=== PATIENT | female | born 1960 | race Caucasian/White ===

== ENCOUNTER 2017-07-24 15:01 | Observation (INO) ==
[2017-07-24] MEDS ORDERED: Ipratropium/Albuterol Neb 3 ML IH ONE (16:20)
--- NOTE | 2017-07-24 16:33 | Emergency Department Note ---
Disposition Clinical Impression: Exertional shortness of breath Disposition: Admitted As Inpatient Condition: Fair Referrals: Les Martines DO [Primary Care Provider] - Forms: ED Satisfaction Letter Time of Disposition: 20:12 SOB HPI - General Chief Complaint: ED Shortness of Breath/Dyspnea Stated Complaint: OMER, "sick" Time Seen by Provider: 07/24/17 15:26 Source: patient Limitations: no limitations Nursing Notes Reviewed: Yes Vital Signs Reviewed: Yes - History of Present Illness Patient is a 56-year-old female past medical history of COPD, asthma, recurrent pneumonia, epilepsy that presents for shortness of breath and cough for the past 3 days. Patient admits to a subjective fever. She has a productive cough with yellow sputum. Patient says that she is not on oxygen at home and has not been for the past 10 years. She admits to post tussive chest pain. She has shortness of breath at rest. She denies any abdominal pain. She does admit to some nausea and vomiting but denies any hematemesis. She denies any recent hospitalization. She denies any diarrhea or constipation. Denies any hematochezia or melena. Denies any dysuria or hematuria. - Related Data Home Medications Medication Instructions Recorded Confirmed Albuterol Sulfate [Proair Hfa] 2 puff IH Q4H PRN 11/17/15 11/17/15 Alendronate Sodium [Fosamax] 70 mg PO QWEEK 11/17/15 11/17/15 Benzonatate [Tessalon] 200 mg PO TID 11/17/15 11/17/15 Budesonide/Formoterol 80/4.5 2 puff IH BIDR 11/17/15 11/17/15 [Symbicort 80/4.5] Lactose-Reduced Food [Ensure 1 bottle PO TID 11/17/15 11/17/15 Complete] Mv,Ca,Fe,Min/FA/Guarana/Caff [One 1 tab PO DAILY 11/17/15 11/17/15 Daily Tablet] Oxcarbazepine [Oxtellar Xr] 300 mg PO QAM 11/17/15 11/17/15 Oxcarbazepine [Oxtellar Xr] 600 mg PO HS 11/17/15 11/17/15 Oxycodone HCl/Acetaminophen 1 tab PO Q6H PRN 11/17/15 11/17/15 [Percocet 5-325 mg Tablet] Ranitidine HCl [Heartburn Relief] 150 mg PO BID 11/17/15 11/17/15 Tiotropium [Spiriva] 1 puff IH DAILY 11/17/15 11/17/15 diazePAM [Valium] 10 mg PO TID 11/17/15 11/17/15 Allergies Allergy/AdvReac Type Severity Reaction Status Date / Time phenytoin Allergy Seizure Verified 11/17/15 10:41 Constitutional: Reports: fever, chills, weakness. Denies: weight change Cardiovascular: Reports: chest pain (Post-tussive), palpitations, dyspnea on exertion Respiratory: Reports: cough, dyspnea, wheezes, sputum production. Denies: hemoptysis Gastrointestinal: Denies: abdominal pain, nausea, vomiting, diarrhea, constipation, hematemesis, melena, hematochezia Genitourinary: Denies: dysuria, frequency, hematuria, discharge Musculoskeletal: Reports: myalgia Past Medical History - Past Medical History Medical history: Reports: COPD, seizures, other Surgical history: Reports: hysterectomy, other Psychiatric history: Reports: no psych history - Social History Smoking Status: Current some day smoker Alcohol use: Reports: none Drug use: Reports: none Physical Exam - General Limitations: no limitations General appearance: alert, in no apparent distress - Chest Chest inspection: Present: normal inspection, symmetric chest wall rise - Respiratory Respiratory exam: Present: wheezes (B/L. Most prominent in L posterior post. ) - Cardiovascular Cardiovascular exam: Present: normal rhythm, tachycardia, normal heart sounds, + S1, +S2. Absent: +S3, +S4 - Abdominal Exam Abdominal exam: Present: soft, tenderness (mild with deep palpation), normal bowel sounds. Absent: distention, guarding, rebound, rigidity Abdominal tenderness: Present: suprapubic - Extremities Exam Extremities exam: Present: normal inspection, full ROM, normal capillary refill , other (Negative gemma's sign b/l. ). Absent: tenderness, pedal edema, calf tenderness Course Course Narrative: Given patient was wheezing on exam and her history of COPD there was concern for COPD exacerbation. Patient was given duo nebs and oral prednisone. She subsequently started to feel slightly better but was still complaining of someshortness of breath. CTA showed no evidence of PE. Chest x-ray revealed focal infiltrate versus scarring in the right CP angle. Her white blood cell count was elevated at 22.1 and her lactic acid was elevated at 3. This was concerning for a pulmonary infectious etiology most likely bronchitis vs. PNA. We walked the patient will monitoring O2 sat and her O2 fell to 90% and she was exhibiting exertional dyspnea. Patent was started on levaquin. Spoke to hospitalist Dr. Phan who agreed to admit the patient for further evaluation. Chest X-Ray 07/24/17 16:20 IMPRESSION: COPD with questionable scarring versus focal infiltrate right CP angle. The mass noted on CT in the left mid lung is not appreciated on the conventional radiograph. D/ / 07/24/2017 17:10:17 Cooper Ochoa MD / ollie Interpreting Provider: Cooper Ochoa MD Chest CTA 07/24/17 17:43 IMPRESSION: No evidence of pulmonary embolism or acute pulmonary abnormality. Stable 11 mm pulmonary nodule within the left upper lobe. COPD. D/ / 07/24/2017 19:27:26 Ismael Marshall MD / ollie Interpreting Provider: Ismael Marshall MD Abnormal lab results WBC 22.1 K/mcL (4.3-11.1) H 07/24/17 16:41 MPV 8.5 fL (9.4-12.4) L 07/24/17 16:41 Neutrophils # 19.1 K/mcL (1.6-8.9) H 07/24/17 16:41 Monocytes # 1.7 K/mcL (0.0-1.3) H 07/24/17 16:41 Sodium 130 mEq/L (136-145) L 07/24/17 16:41 Carbon Dioxide 21 mEq/L (23-29) L 07/24/17 16:41 Creatinine 0.43 mg/dL (0.60-1.20) L 07/24/17 16:41 Glucose 143 mg/dL (70-105) H 07/24/17 16:41 Calculated Osmolality 270 (280-300) L 07/24/17 16:41 Lactic Acid 3.0 mmol/L (0.5-2.2) H 07/24/17 18:32 Vital Signs Temperature 98.8 F 07/24/17 15:11 Pulse Rate 121 07/24/17 15:11 Respiratory Rate 20 07/24/17 15:11 Blood Pressure 114/76 07/24/17 15:11 O2 Sat by Pulse Oximetry 90 07/24/17 15:11 Temperature 98.8 F 07/24/17 15:11 Pulse Rate 96 07/24/17 19:54 Respiratory Rate 22 07/24/17 19:54 Blood Pressure 115/71 07/24/17 19:54 O2 Sat by Pulse Oximetry 95 07/24/17 19:54 Oxygen Delivery Oxygen Delivery Room Air Shortness of Breath/Dyspnea - Lab Data Result diagrams: 07/24/17 16:41 07/24/17 16:41 Lab Results 07/24/17 07/24/17 07/24/17 Range/Units 16:41 16:41 16:41 WBC 22.1 H (4.3-11.1) K/mcL RBC 4.21 (3.82-4.97) M/mcL Hgb 13.3 (11.5-15.4) g/dL Hct 37.9 (35.3-44.9) % MCV 90.0 (83.0-100.0) fL MCH 31.6 (28.0-33.3) pg MCHC 35.1 (31.6-35.5) g/dL RDW 12.2 (11.5-14.5) % Plt Count 348 (140-400) K/mcL MPV 8.5 L (9.4-12.4) fL Immature Gran % 0.5 (0-4) % Seg Neutrophils % 86.3 % Lymphocytes % 5.5 % Monocytes % 7.5 % Eosinophils % 0.0 % Basophils % 0.2 % Neutrophils # 19.1 H (1.6-8.9) K/mcL Lymphocytes # 1.2 (0.6-4.6) K/mcL Monocytes # 1.7 H (0.0-1.3) K/mcL Eosinophils # 0.0 (0.0-0.6) K/mcL Basophils # 0.1 (0.0-0.2) K/mcL Sodium 130 L (136-145) mEq/L Potassium 3.7 (3.5-5.1) mEq/L Chloride 99 (98-107) mEq/L Carbon Dioxide 21 L (23-29) mEq/L BUN 7 (6-20) mg/dL Creatinine 0.43 L (0.60-1.20) mg/dL Est GFR ( Amer) > 60 (> 60) Est GFR (Non-Af Amer) > 60 (> 60) BUN/Creatinine Ratio 16 (6-26) Glucose 143 H (70-105) mg/dL Calculated Osmolality 270 L (280-300) Lactic Acid 1.7 (0.5-2.2) mmol/L Calcium 8.7 (8.6-10.3) mg/dL Troponin I < 0.03 (< 0.04) ng/mL B-Natriuretic Peptide (Less than 100) pg/mL Urine Color (Yellow) Urine Clarity (Clear) Urine pH (5.0-8.0) pH Units Ur Specific [place] (1.010-1.025) Urine Protein (Neg-Trace) mg/dL Urine Glucose (UA) (Normal) mg/dL Urine Ketones (Negative) mg/dL Urine Blood (Negative) Urine Nitrite (Negative) Urine Bilirubin (Negative) Urine Urobilinogen (Normal) mg/dL Ur Leukocyte Esterase (Negative) Ur Culture Indicated? (NO) 07/24/17 07/24/17 07/24/17 Range/Units 16:41 18:32 19:22 WBC (4.3-11.1) K/mcL RBC (3.82-4.97) M/mcL Hgb (11.5-15.4) g/dL Hct (35.3-44.9) % MCV (83.0-100.0) fL MCH (28.0-33.3) pg MCHC (31.6-35.5) g/dL RDW (11.5-14.5) % Plt Count (140-400) K/mcL MPV (9.4-12.4) fL Immature Gran % (0-4) % Seg Neutrophils % % Lymphocytes % % Monocytes % % Eosinophils % % Basophils % % Neutrophils # (1.6-8.9) K/mcL Lymphocytes # (0.6-4.6) K/mcL Monocytes # (0.0-1.3) K/mcL Eosinophils # (0.0-0.6) K/mcL Basophils # (0.0-0.2) K/mcL Sodium (136-145) mEq/L Potassium (3.5-5.1) mEq/L Chloride (98-107) mEq/L Carbon Dioxide (23-29) mEq/L BUN (6-20) mg/dL Creatinine (0.60-1.20) mg/dL Est GFR ( Amer) (> 60) Est GFR (Non-Af Amer) (> 60) BUN/Creatinine Ratio (6-26) Glucose (70-105) mg/dL Calculated Osmolality (280-300) Lactic Acid 3.0 H (0.5-2.2) mmol/L Calcium (8.6-10.3) mg/dL Troponin I (< 0.04) ng/mL B-Natriuretic Peptide 60 (Less than 100) pg/mL Urine Color Yellow (Yellow) Urine Clarity Clear (Clear) Urine pH 7.0 (5.0-8.0) pH Units Ur Specific [place] 1.021 (1.010-1.025) Urine Protein Negative (Neg-Trace) mg/dL Urine Glucose (UA) Normal (Normal) mg/dL Urine Ketones Negative (Negative) mg/dL Urine Blood Negative (Negative) Urine Nitrite Negative (Negative) Urine Bilirubin Negative (Negative) Urine Urobilinogen Normal (Normal) mg/dL Ur Leukocyte Esterase Negative (Negative) Ur Culture Indicated? NO (NO) - EKG Data EKG attestation: Yes I reviewed and interpreted this EKG. EKG shows normal: Reports: sinus rhythm, axis, intervals, QRS complexes Rate: Reports: tachycardia When compared to previous EKG there are: no significant changes Interpretation: Reports: no acute changes Attestation Statement - Attestation Attestation: I, Oswaldo Pratt DO, examined this patient [id number] and my medical decision-making was reviewed with Filemon Hassan PGY-1, Resident Physician. I agree with the documented findings, disposition and treatment plan as described except to the extent set forth below. Please see my progress notes for details.
[2017-07-24] MEDS ORDERED: predniSONE 20 MG TABLET PO ONE (16:43)
[2017-07-24 16:52] LABS: Basophils # 0.1 K/mcL (0.0-0.2); Basophils % 0.2 %; Hematocrit 37.9 % (35.3-44.9); Hemoglobin 13.3 g/dL (11.5-15.4); Immature Granulocytes % 0.5 % (0-4); Lymphocytes # 1.2 K/mcL (0.6-4.6); Lymphocytes % 5.5 %; Mean Corpuscular HGB Conc 35.1 g/dL (31.6-35.5); Mean Corpuscular Hemoglobin 31.6 pg (28.0-33.3); Mean Platelet Volume 8.5 fL (9.4-12.4); Monocytes # 1.7 K/mcL (0.0-1.3); Monocytes % 7.5 %; Neutrophils # 19.1 K/mcL (1.6-8.9); Platelet Count 348 K/mcL (140-400); Red Blood Count 4.21 M/mcL (3.82-4.97); Red Cell Distribution Width 12.2 % (11.5-14.5); Segmented Neutrophils % 86.3 %
[2017-07-24 17:20] LABS: BUN/Creatinine Ratio 16 (6-26); Blood Urea Nitrogen 7 mg/dL (6-20); Calcium 8.7 mg/dL (8.6-10.3); Carbon Dioxide 21 mEq/L (23-29); Chloride 99 mEq/L (98-107); Glucose 143 mg/dL (70-105); Osmolality,Calculated 270 (280-300); Potassium 3.7 mEq/L (3.5-5.1); Sodium 130 mEq/L (136-145); Troponin I < 0.03 ng/mL (< 0.04); eGFR For African Americans > 60 (> 60); eGFR For Non-African Americans > 60 (> 60)
--- NOTE | 2017-07-24 17:25 | Emergency Department Note ---
Disposition Clinical Impression: Exertional shortness of breath, SOB (shortness of breath), Weakness Disposition: Admitted As Inpatient Condition: Fair Referrals: Les Martines DO [Primary Care Provider] - Forms: ED Satisfaction Letter Time of Disposition: 20:14 General Adult HPI - General Chief complaint: ED Shortness of Breath/Dyspnea Stated complaint: OMER, "sick" Time Seen by Provider: 07/24/17 15:26 Source: patient Limitations: no limitations - History of Present Illness Pain Scale: 8 - Related Data Home Medications Medication Instructions Recorded Confirmed Albuterol Sulfate [Proair Hfa] 2 puff IH Q4H PRN 11/17/15 11/17/15 Alendronate Sodium [Fosamax] 70 mg PO QWEEK 11/17/15 11/17/15 Benzonatate [Tessalon] 200 mg PO TID 11/17/15 11/17/15 Budesonide/Formoterol 80/4.5 2 puff IH BIDR 11/17/15 11/17/15 [Symbicort 80/4.5] Lactose-Reduced Food [Ensure 1 bottle PO TID 11/17/15 11/17/15 Complete] Mv,Ca,Fe,Min/FA/Guarana/Caff [One 1 tab PO DAILY 11/17/15 11/17/15 Daily Tablet] Oxcarbazepine [Oxtellar Xr] 300 mg PO QAM 11/17/15 11/17/15 Oxcarbazepine [Oxtellar Xr] 600 mg PO HS 11/17/15 11/17/15 Oxycodone HCl/Acetaminophen 1 tab PO Q6H PRN 11/17/15 11/17/15 [Percocet 5-325 mg Tablet] Ranitidine HCl [Heartburn Relief] 150 mg PO BID 11/17/15 11/17/15 Tiotropium [Spiriva] 1 puff IH DAILY 11/17/15 11/17/15 diazePAM [Valium] 10 mg PO TID 11/17/15 11/17/15 Allergies Allergy/AdvReac Type Severity Reaction Status Date / Time levofloxacin [From Levaquin] Allergy Hives Verified 07/24/17 20:11 phenytoin Allergy Seizure Verified 11/17/15 10:41 Constitutional: Reports: fever, chills, weakness. Denies: weight change Cardiovascular: Reports: chest pain (Post-tussive), palpitations, dyspnea on exertion Respiratory: Reports: cough, dyspnea, wheezes, sputum production. Denies: hemoptysis Gastrointestinal: Denies: abdominal pain, nausea, vomiting, diarrhea, constipation, hematemesis, melena, hematochezia Genitourinary: Denies: dysuria, frequency, hematuria, discharge Musculoskeletal: Reports: myalgia Past Medical History - Past Medical History Medical history: Reports: COPD, seizures, other Surgical history: Reports: hysterectomy, other Psychiatric history: Reports: no psych history - Social History Smoking Status: Current some day smoker Alcohol use: Reports: none Drug use: Reports: none Physical Exam - General Limitations: no limitations General appearance: alert, in no apparent distress Course Vital Signs Temperature 98.8 F 07/24/17 15:11 Pulse Rate 121 07/24/17 15:11 Respiratory Rate 20 07/24/17 15:11 Blood Pressure 114/76 07/24/17 15:11 O2 Sat by Pulse Oximetry 90 07/24/17 15:11 Temperature 98.8 F 07/24/17 15:11 Pulse Rate 96 07/24/17 19:54 Respiratory Rate 22 07/24/17 19:54 Blood Pressure 115/71 07/24/17 19:54 O2 Sat by Pulse Oximetry 95 07/24/17 19:54 Oxygen Delivery Oxygen Delivery Room Air Medical Decision Making - Lab Data Result diagrams: 07/24/17 16:41 07/24/17 16:41 Lab Results 07/24/17 07/24/17 07/24/17 Range/Units 16:41 16:41 16:41 WBC 22.1 H (4.3-11.1) K/mcL RBC 4.21 (3.82-4.97) M/mcL Hgb 13.3 (11.5-15.4) g/dL Hct 37.9 (35.3-44.9) % MCV 90.0 (83.0-100.0) fL MCH 31.6 (28.0-33.3) pg MCHC 35.1 (31.6-35.5) g/dL RDW 12.2 (11.5-14.5) % Plt Count 348 (140-400) K/mcL MPV 8.5 L (9.4-12.4) fL Immature Gran % 0.5 (0-4) % Seg Neutrophils % 86.3 % Lymphocytes % 5.5 % Monocytes % 7.5 % Eosinophils % 0.0 % Basophils % 0.2 % Neutrophils # 19.1 H (1.6-8.9) K/mcL Lymphocytes # 1.2 (0.6-4.6) K/mcL Monocytes # 1.7 H (0.0-1.3) K/mcL Eosinophils # 0.0 (0.0-0.6) K/mcL Basophils # 0.1 (0.0-0.2) K/mcL Sodium 130 L (136-145) mEq/L Potassium 3.7 (3.5-5.1) mEq/L Chloride 99 (98-107) mEq/L Carbon Dioxide 21 L (23-29) mEq/L BUN 7 (6-20) mg/dL Creatinine 0.43 L (0.60-1.20) mg/dL Est GFR ( Amer) > 60 (> 60) Est GFR (Non-Af Amer) > 60 (> 60) BUN/Creatinine Ratio 16 (6-26) Glucose 143 H (70-105) mg/dL Calculated Osmolality 270 L (280-300) Lactic Acid 1.7 (0.5-2.2) mmol/L Calcium 8.7 (8.6-10.3) mg/dL Troponin I < 0.03 (< 0.04) ng/mL B-Natriuretic Peptide (Less than 100) pg/mL Urine Color (Yellow) Urine Clarity (Clear) Urine pH (5.0-8.0) pH Units Ur Specific [place] (1.010-1.025) Urine Protein (Neg-Trace) mg/dL Urine Glucose (UA) (Normal) mg/dL Urine Ketones (Negative) mg/dL Urine Blood (Negative) Urine Nitrite (Negative) Urine Bilirubin (Negative) Urine Urobilinogen (Normal) mg/dL Ur Leukocyte Esterase (Negative) Ur Culture Indicated? (NO) 07/24/17 07/24/17 07/24/17 Range/Units 16:41 18:32 19:22 WBC (4.3-11.1) K/mcL RBC (3.82-4.97) M/mcL Hgb (11.5-15.4) g/dL Hct (35.3-44.9) % MCV (83.0-100.0) fL MCH (28.0-33.3) pg MCHC (31.6-35.5) g/dL RDW (11.5-14.5) % Plt Count (140-400) K/mcL MPV (9.4-12.4) fL Immature Gran % (0-4) % Seg Neutrophils % % Lymphocytes % % Monocytes % % Eosinophils % % Basophils % % Neutrophils # (1.6-8.9) K/mcL Lymphocytes # (0.6-4.6) K/mcL Monocytes # (0.0-1.3) K/mcL Eosinophils # (0.0-0.6) K/mcL Basophils # (0.0-0.2) K/mcL Sodium (136-145) mEq/L Potassium (3.5-5.1) mEq/L Chloride (98-107) mEq/L Carbon Dioxide (23-29) mEq/L BUN (6-20) mg/dL Creatinine (0.60-1.20) mg/dL Est GFR ( Amer) (> 60) Est GFR (Non-Af Amer) (> 60) BUN/Creatinine Ratio (6-26) Glucose (70-105) mg/dL Calculated Osmolality (280-300) Lactic Acid 3.0 H (0.5-2.2) mmol/L Calcium (8.6-10.3) mg/dL Troponin I (< 0.04) ng/mL B-Natriuretic Peptide 60 (Less than 100) pg/mL Urine Color Yellow (Yellow) Urine Clarity Clear (Clear) Urine pH 7.0 (5.0-8.0) pH Units Ur Specific [place] 1.021 (1.010-1.025) Urine Protein Negative (Neg-Trace) mg/dL Urine Glucose (UA) Normal (Normal) mg/dL Urine Ketones Negative (Negative) mg/dL Urine Blood Negative (Negative) Urine Nitrite Negative (Negative) Urine Bilirubin Negative (Negative) Urine Urobilinogen Normal (Normal) mg/dL Ur Leukocyte Esterase Negative (Negative) Ur Culture Indicated? NO (NO) Attestation Statement - Attestation Attestation: I, Oswaldo Pratt DO, examined this patient [id number] and my medical decision-making was reviewed with Filemon Hassan PGY-1, Resident Physician. I agree with the documented findings, disposition and treatment plan as described except to the extent set forth below. Please see my progress notes for details. 56-year-old female presents to the emergency room for evaluation of shortness of breath. Patient denies any trauma or injury. Denies any recent illnesses including fevers or chills chest pain headache vision changes nausea vomiting or diarrhea. She has no new medications or travel outside the country. Patient does have known COPD the typically does not require oxygen. She came in here today because of the last several days she is a persistently worsening shortness of breath. Vital signs on presentation were unremarkable except for tachycardia. Some of this is secondary to the increased work of breathing. Patient is using accessory muscles including the anterior scalenes and the diaphragm quite heavily here during my evaluation. Her oropharynx is patent her trachea is midline there is no stridor no trismus. Her heart is regular but tachycardic. She has clear lungs with diminished aeration her air movement on examination. This will most likely clear up or start to wheeze after breathing treatments are given. Abdomen is soft nontender nondistended non- peritoneal and evaluation. She has no guarding or rigidity. She does have diaphragmatic tenderness when palpating across the inferior aspect of the rib margin bilaterally and into her back. Patient moves all 4 of her extremities without any difficulty. She has no signs of pitting edema or swelling. Patient is alert she is oriented she speaks in full sentences and does not appear to have any neurologic deficits or issues. Patient will have breathing treatments steroids chest x-ray EKG labs including CBC chemistry troponin and BNP. Once this workup and treatment course are completed disposition will be determined. Patient is concerning for COPD exacerbation and is failed outpatient management. See detailed documentation of the physical exam, medical intervention, medical decision-making and disposition in the resident physician's note. No critical care applied to the patient's treatment course at this time. 1945 CT angiography of the patient's chest and lungs show any acute signs of pulmonary emboli or specific infection this point. Levaquin was given here. Second lactic acid was collected and was 3.0. Patient has not been febrile has not been tachycardic and has not had any signs of hypotension while here. She does have a significantly elevated white blood cell count. A single liter of fluid will be given at this time. Patient does not meet any signs of severe sepsis. She does have some underlying infectious etiology most likely bronchitis based on the presentation the cough and shortness of breath. Patient will be admitted at this time because while she was walking she dropped on the 90% and had shortness of breath and felt lightheaded. Patient typically does not require oxygen at home. Otherwise the patient is clinically stable. Admission process to be completed at this point. No critical care applied to the patient's treatment course. Patient does have what looks like irritation secondary to the Levaquin and left upper extremity IV. Antibiotic was stopped after 500 mg of the medication was given. No specific infectious etiology noted at this time based on CT imaging of the patient will be admitted for symptomatic hypoxia 2000 Patient was discussed with the hospitalist Dr. Phan. No other recommendations noted at this time. Patient will be admitted for what looks like possible bronchitis in light of a negative CT scan causing elevated white blood cell count and intermittent tachycardia. Patient also had hypoxia. No acute signs of septic shock or requirement for fluid resuscitation at this time. Lactic acid was 3.0 on the repeat. Patient will require fluid in the hospital setting and close management. Single dose bolus of fluid was given here. Patient will be admitted at this time.
[2017-07-24] MEDS ORDERED: Levofloxacin 750 MG/150 ML 750 MG/150 ML BAG IVPB ONE (17:27)
[2017-07-24] MEDS ORDERED: Isovue-370 500 ML INFUS..BTL IV ONE (17:43)
[2017-07-24] MEDS ORDERED: *HR* OxyCODONE/APAP 5/325 TABLET PO ONE (18:18)
[2017-07-24 19:31] LABS: Bilirubin,Urine Negative (Negative); Blood,Urine Negative (Negative); Clarity,Urine Clear (Clear); Color,Urine Yellow (Yellow); Glucose,Urine (UA) Normal (Normal); Ketones,Urine Negative (Negative); Leukocyte Esterase,Urine Negative (Negative); Nitrite,Urine Negative (Negative); Protein,Urine Negative (Neg-Trace); Specific Gravity,Urine 1.021 (1.010-1.025); Urobilinogen,Urine Normal (Normal)
[2017-07-24] MEDS ORDERED: 0.9 % Sodium Chloride 1,000 ML IVC ONE (19:57)
[2017-07-24] MEDS ORDERED: Naloxone 0.4 MG/ML INJ IVP PRN (22:52)
--- NOTE | 2017-07-24 23:02 | Internal Med History&Physical ---
Date of Encounter: 07/24/17 Time of Encounter: 23:02 Internal Medicine - H&P: HPI Chief complaint: Shortness of breath Admitted From: Emergency Dept Plans for Post Hospital Care: Home History of present illness: Ms. Allison is a 56 year old female with h/o- COPD, who presents with c/o- shortness of breath and felling sick for the last 3 days. SHe reports exertional dyspnea, productive cough with clear sputum, rib pains on both sides on coughing, dizziness and wheezing. No fever/chills. SHe has not been treated with antibiotics or steroids at home. SHe has generalized weakness and leg pains. No leg swelling, orthopnea, syncope. SHe has been using her inhalers and nebulizers at home with no improvement in symptoms. She is not on home O2. Past Med Surg Social Fam HX - Past Medical History Source: patient Medical history: COPD, seizures, other Psychiatric history: no psych history - Past Surgical History Surgical History: hysterectomy (tubal ligation), orthopedic, other (left knee surgery), other - Social History Smoking Status: Current some day smoker Packs per day: 0.1 Smokeless Tobacco Status: No Alcohol use: none Drug use: none Occupational status: disabled Current living situation: Home, With Family Activity Level: Uses cane/walker Recent Out of Country Travel Within the Last 8 Weeks: No Exposure or Possible Exposure to Illness During Travel: No - Family History Father Living Status: Hx Family Neurologic Disorders: Yes (Parkinson's) Hx Family Psychosocial Disorders: Yes (Alzheimer's) Mother Living Status: Still Living Hx Family Cancer: Yes (breast cancer) Hx Family Medical Disorders: Yes (CVA) Internal Medicine - H&P: Meds Albuterol Sulfate [Proair Hfa] 2 puff IH Q4H PRN 11/17/15 [History] Alendronate Sodium [Fosamax] 70 mg PO QWEEK 11/17/15 [History] Lactose-Reduced Food [Ensure Complete] 1 bottle PO TID 11/17/15 [History] Oxcarbazepine [Oxtellar Xr] 300 mg PO QAM 11/17/15 [History] Oxcarbazepine [Oxtellar Xr] 600 mg PO HS 11/17/15 [History] Oxycodone HCl/Acetaminophen [Percocet 5-325 mg Tablet] 1 tab PO Q6H PRN [History] Ranitidine HCl [Heartburn Relief] 150 mg PO BID 11/17/15 [History] diazePAM [Valium] 10 mg PO TID 11/17/15 [History] Fluticasone/Vilanterol [Breo Ellipta 100-25 Mcg INH] 07/24/17 [History] Phenytoin ER [Dilantin ER] 300 mg PO BID 07/24/17 [History] Phenytoin ER [Dilantin ER] 600 mg PO HS 07/24/17 [History] 3 Allergy/AdvReac Type Severity Reaction Status Date / Time levofloxacin [From Levaquin] Allergy Hives Verified 07/24/17 20:11 All Systems PM: A 10-system review of systems was performed and is negative for pertinent findings except as documented above in the HPI. - Constitutional Constitutional: fatigue, malaise, weakness - EENT Eyes: no change in vision, no discharge, no pain, no photophobia Ears: no ear discharge, no ear pain, no tinnitus Nose, mouth and throat: no dysphagia, no nasal discharge, no neck pain, no sore throat - Cardiovascular Cardiovascular ROS IM: chest pain, dyspnea, dyspnea on exertion, lightheadedness , no diaphoresis, no palpitations, no syncope - Respiratory Respiratory: cough, dyspnea, dyspnea on exertion, wheezing, chest congestion, excessive phlegm production - Gastrointestinal Gastrointestinal: no abdominal pain, no diarrhea, no hematemesis, no hematochezia, no melena, no nausea, no vomiting - Genitourinary Genitourinary: no change in urinary stream, no dysuria, no flank pain, no hematuria - Musculoskeletal Musculoskeletal ROS IM: muscle weakness, myalgias, no numbness, no tingling - Integumentary Integumentary IM: no rash, no unusual bruising - Neurological Neurological ROS: no confusion, no convulsions, no focal weakness, no numbness, no tingling, no tremor(s) - Hematologic/Lymphatic Hematologic/Lymphatic: no easy bruising - Constitutional Vitals: Temp Pulse Resp BP Pulse Ox 97.9 F 93 16 110/65 96 07/24/17 21:20 07/24/17 21:20 07/24/17 21:20 07/24/17 21:20 07/24/17 22:23 General appearance: Present: cachectic, A&O X 3, answers questions appropriately - Respiratory Respiratory exam: Present: decreased breath sounds (decreased air entry at right base), CTAB. Absent: accessory muscle use, rales, rhonchi, wheezes - Cardiovascular Cardiovascular exam: Present: RRR, +S1, +S2. Absent: diastolic murmur, gallop, rubs, systolic murmur - GI/Abdominal GI/Abdominal exam: Present: normal bowel sounds, soft, no peritoneal signs. Absent: distended, tenderness - Extremities Exam Extremities exam: Present: full ROM, warm, radial pulses palpable and symmetrical. Absent: calf tenderness, cyanotic, pedal edema - Neurological Exam Neurological exam: Present: CN II-XII intact, oriented X3, no focal deficits. Absent: pronater drift, facial droop, speech deficit - Skin Skin exam: Present: dry, intact Internal Med - H&P Results - Labs CBC & Chem 7: 07/24/17 16:41 07/24/17 16:41 - EKG Data -: EKG Interpreted by Myself EKG shows normal: sinus rhythm Rate: tachycardia - Assessment and plan (1) Acute exacerbation of chronic obstructive pulmonary disease (COPD) Current Visit: Yes Status: Acute Assessment and plan: continue oral Prednisone, bronchodilator nebs, supplemental O2, supportive care ; empiric IV antibiotics- Doxycycline; CTA chest showed no e/o- PE or pneumonia , chronic MARLEN spiculated nodule; patient follows with Pulmonology, biopsy is deferred for now due to risks of GA exceeding benefits; patient has leukocytosis and mild lactic acidosis, likely due to acute COPD and hypoxia; sepsis less likely. monitor vitals and lactic acid; f/up blood cultures. PT evaluation due to leg weakness; (2) Epilepsy Current Visit: Yes Status: Chronic Assessment and plan: resume home meds; seizure precautions; Qualifiers: Epilepsy type: unspecified Intractability: not intractable Status epilepticus: without status epilepticus Qualified Code(s): G40.909 - Epilepsy , unspecified, not intractable, without status epilepticus - Time Spent With Patient Total time spent is greater than 50% in coordination of care (as documented) at patient's floor/unit and/or counseling patient:
[2017-07-24] MEDS: OXcarbazepine 150 MG TABLET PO SCH (23:22)
[2017-07-24] MEDS: Famotidine 20 MG TABLET PO SCH (23:22)
[2017-07-24] MEDS: diazePAM 10 MG TABLET PO SCH (23:23)
[2017-07-24] MEDS: *HR* Heparin 5,000 UNIT/ML VIAL SQ SCH (23:23)
[2017-07-24] MEDS: Ringers Solution, Lactated 1,000 ML IVC SCH (23:23)
[2017-07-25] MEDS: *HR* OxyCODONE/APAP 5/325 TABLET PO PRN ×4 (00:54→20:37)
[2017-07-25 05:26] LABS: Basophils % 0.2 %; Hematocrit 31.9 % (35.3-44.9); Immature Granulocytes % 0.5 % (0-4); Lymphocytes % 12.8 %; Mean Corpuscular HGB Conc 34.8 g/dL (31.6-35.5); Mean Corpuscular Hemoglobin 31.5 pg (28.0-33.3); Mean Corpuscular Volume 90.6 fL (83.0-100.0); Mean Platelet Volume 8.5 fL (9.4-12.4); Monocytes % 4.8 %; Platelet Count 311 K/mcL (140-400); Red Blood Count 3.52 M/mcL (3.82-4.97); Red Cell Distribution Width 12.3 % (11.5-14.5); Segmented Neutrophils % 81.7 %
[2017-07-25 05:27] LABS: Lymphocytes # 2.5 K/mcL (0.6-4.6); Monocytes # 0.9 K/mcL (0.0-1.3); Neutrophils # 15.9 K/mcL (1.6-8.9)
[2017-07-25 05:28] LABS: Hemoglobin 11.1 g/dL (11.5-15.4)
[2017-07-25 05:51] LABS: BUN/Creatinine Ratio 27 (6-26); Blood Urea Nitrogen 7 mg/dL (6-20); Calcium 8.1 mg/dL (8.6-10.3); Carbon Dioxide 20 mEq/L (23-29); Chloride 106 mEq/L (98-107); Glucose 90 mg/dL (70-105); Osmolality,Calculated 274 (280-300); Potassium 3.9 mEq/L (3.5-5.1); Sodium 133 mEq/L (136-145); eGFR For African Americans > 60 (> 60); eGFR For Non-African Americans > 60 (> 60)
[2017-07-25] MEDS: *HR* Heparin 5,000 UNIT/ML VIAL SQ SCH ×3 (05:55→22:53)
[2017-07-25] MEDS: Doxycycline 100 MG in 0.9 % Sodium Chloride Mini Bag 100 ML IVPB SCH ×2 (05:55→17:12)
[2017-07-25] MEDS: Famotidine 20 MG TABLET PO SCH ×2 (08:00→20:28)
[2017-07-25] MEDS: diazePAM 10 MG TABLET PO SCH ×3 (08:00→20:28)
[2017-07-25] MEDS: OXcarbazepine 150 MG TABLET PO SCH ×2 (08:00→20:28)
[2017-07-25] MEDS ORDERED: predniSONE 20 MG TABLET PO SCH (09:00)
[2017-07-25] MEDS ORDERED: NON-FORMULARY MEDICATION 1 EACH EACH (Lactose-Reduced Food [Ensure Complete] 1 BOTTLE) PO SCH (09:00)
[2017-07-25] MEDS: (Fluticasone/Vilanterol [Breo Ellipta 100-25 Mcg Inh]) IH SCH (09:52)
--- NOTE | 2017-07-25 14:07 | Internal Med Progress Note ---
Date of Encounter: 07/25/17 Time of Encounter: 14:05 - Assessment and plan (1) Exertional shortness of breath Current Visit: Yes Status: Acute Assessment and plan: still very sob (2) Acute exacerbation of chronic obstructive pulmonary disease (COPD) Current Visit: Yes Status: Acute Assessment and plan: clinically not better will dc prednisone and start on solumedrol and add scheduled duoneb and consult pulm (3) Epilepsy Current Visit: Yes Status: Chronic Assessment and plan: no seizure episode Qualifiers: Epilepsy type: unspecified Intractability: not intractable Status epilepticus: without status epilepticus Qualified Code(s): G40.909 - Epilepsy , unspecified, not intractable, without status epilepticus - Time Spent With Patient Total time spent is greater than 50% in coordination of care (as documented) at patient's floor/unit and/or counseling patient: - Subjective Interval history: Patient with copd and seizure disorder admiited with productive cough and wheezing today patient is not getting better stll wheezing insp and exp will dc prednisone and start solumedrol and consult pulm - Constitutional Vitals: Temp Pulse Resp BP Pulse Ox 98.7 F 82 16 111/70 93 07/25/17 11:59 07/25/17 11:59 07/25/17 11:59 07/25/17 11:59 07/25/17 11:59 General appearance: Present: cachectic, A&O X 3, answers questions appropriately - Head Head exam: Present: atraumatic, normocephalic - Eye Eye exam: Present: PERRL, conjuntiva pink, sclera anicteric Pupils: Present: PERRL - Respiratory Respiratory exam: Present: prolonged expiratory phase, wheezes - Cardiovascular Cardiovascular exam: Present: RRR, +S1, +S2. Absent: diastolic murmur, gallop, rubs, systolic murmur - GI/Abdominal GI/Abdominal exam: Present: normal bowel sounds, soft, no peritoneal signs. Absent: distended, tenderness - Extremities Exam Extremities exam: Present: warm, radial pulses palpable and symmetrical. Absent : calf tenderness, cyanotic, pedal edema - Neurological Exam Neurological exam: Present: CN II-XII intact, oriented X3, no focal deficits. Absent: pronater drift, facial droop, speech deficit Internal Medicine: Result - Labs CBC & Chem 7: 07/25/17 05:10 07/25/17 05:10 Labs: Short CBC 07/25/17 Range/Units 05:10 WBC 19.4 H (4.3-11.1) K/mcL Hgb 11.1 L D (11.5-15.4) g/dL Hct 31.9 L (35.3-44.9) % Plt Count 311 (140-400) K/mcL Neutrophils # 15.9 H (1.6-8.9) K/mcL BMP 07/25/17 05:10 Sodium 133 L Potassium 3.9 Chloride 106 Carbon Dioxide 20 L BUN 7 Creatinine 0.26 L Glucose 90 Calcium 8.1 L Cardiac Enzymes 07/24/17 07/25/17 07/25/17 Range/Units 23:15 05:10 11:12 Troponin I < 0.03 < 0.03 0.05 H* (< 0.04) ng/mL Consult Discharge Plan - Plan Referrals: Les Martines DO [Primary Care Provider] -
[2017-07-25] MEDS: Ipratropium/Albuterol Neb 3 ML IH PRN ×2 (15:05→21:53)
--- NOTE | 2017-07-25 16:36 | Pulmonology Consult Note ---
Date of Encounter: 07/25/17 Time of Encounter: 16:00 Assessment and Plan (1) Acute exacerbation of chronic obstructive pulmonary disease (COPD) Current Visit: Yes Status: Acute Patient presented with a picture compatible with COPD exacerbation and advised him multiple times to quit smoking completely in order for her to feels better and she stated she will not smoke again. At this time empiric antibiotic is reasonable and I will stop prednisone to change it to IV Solu-Medrol with higher dose since patient still having symptoms and also on examination she has bilateral wheezing and add Symbicort to her current treatment. As outpatient and she will need pulmonary rehabilitation. Patient will need to be qualified for oxygen and to keep SPO2 around 90%. Thank you for consultation we will continue follow-up. (2) Tobacco abuse Current Visit: Yes Status: Chronic (3) Tobacco abuse counseling Current Visit: Yes Status: Chronic Patient stated that she will not smoke tobacco again. (4) Lung nodule Current Visit: Yes Status: Chronic This has been stable and follow-up as outpatient. History of Present Illness Consult date: 07/25/17 Requesting physician: Erwin Morrison Reason for consult: COPD Chief complaint: Shortness of breath History of present illness: This is pleasant 56-year-old female who is known to me from outpatient clinic with history of COPD and she quit smoking only a few days ago even though she was told multiple times her disease will progress if she does not quit smoking tobacco. She presented with worsening of shortness of breath and productive cough with clear sputum and chest soreness from coughing and she also have dizziness and wheezing. She denies any fever or chills. Patient is not on home oxygen and she feels her disease was progressing. She denies any orthopnea and no hemoptysis. She had a lung nodule that has been monitored as outpatient. Past Med Surg Social Fam HX - Past Medical History Medical history: COPD, seizures, other Psychiatric history: no psych history - Past Surgical History Surgical History: hysterectomy (tubal ligation), orthopedic, other (left knee surgery), other - Social History Smoking Status: Current some day smoker Packs per day: 0.1 Smokeless Tobacco Status: No Alcohol use: none Drug use: none - Family History Father Living Status: Hx Family Neurologic Disorders: Yes (Parkinson's) Hx Family Psychosocial Disorders: Yes (Alzheimer's) Mother Living Status: Still Living Hx Family Cancer: Yes (breast cancer) Hx Family Medical Disorders: Yes (CVA) Medications and Allergies Albuterol Sulfate [Proair Hfa] 2 puff IH Q4H PRN 11/17/15 [History] Alendronate Sodium [Fosamax] 70 mg PO QWEEK 11/17/15 [History] Lactose-Reduced Food [Ensure Complete] 1 bottle PO TID 11/17/15 [History] Oxcarbazepine [Oxtellar Xr] 300 mg PO QAM 11/17/15 [History] Oxcarbazepine [Oxtellar Xr] 600 mg PO HS 11/17/15 [History] Oxycodone HCl/Acetaminophen [Percocet 5-325 mg Tablet] 1 tab PO Q6H PRN [History] Ranitidine HCl [Heartburn Relief] 150 mg PO BID 11/17/15 [History] diazePAM [Valium] 10 mg PO TID 11/17/15 [History] Fluticasone/Vilanterol [Breo Ellipta 100-25 Mcg INH] 1 puff IH DAILY 07/24/17 [ History] Phenytoin ER [Dilantin ER] 300 mg PO BID 07/24/17 [History] Phenytoin ER [Dilantin ER] 600 mg PO HS 07/24/17 [History] 3 Allergy/AdvReac Type Severity Reaction Status Date / Time levofloxacin [From Levaquin] Allergy Hives Verified 07/24/17 20:11 All Systems: The remainder of the systems were reviewed and are negative Physical Examination Vital Signs: Vital Signs, Last 4 Hours Temp Pulse Resp BP Pulse Ox 07/25/17 15:58 98.4 F 79 16 126/80 97 07/25/17 15:07 16 93 General appearance: appears uncomfortable (Mild respiratory distress) Eyes: nonicteric ENT: oropharynx moist Mallampati (class): 1 Neck: supple, no lymphadenopathy, no JVD Effort: mildly labored Inspection: hyperextended Auscultation: bilateral: wheezes Percussion: bilateral: not dull Cardiovascular: regular rate and rhythm Gastrointestinal: normoactive bowel sounds, non-distended Extremities: no cyanosis, no edema normal mental status, non-focal exam anxious Results - Laboratory Findings CBC and BMP: 07/25/17 05:10 07/25/17 05:10 Abnormal lab findings: Abnormal lab results WBC 19.4 K/mcL (4.3-11.1) H 07/25/17 05:10 RBC 3.52 M/mcL (3.82-4.97) L 07/25/17 05:10 Hgb 11.1 g/dL (11.5-15.4) L D 07/25/17 05:10 Hct 31.9 % (35.3-44.9) L 07/25/17 05:10 MPV 8.5 fL (9.4-12.4) L 07/25/17 05:10 Neutrophils # 15.9 K/mcL (1.6-8.9) H 07/25/17 05:10 Sodium 133 mEq/L (136-145) L 07/25/17 05:10 Carbon Dioxide 20 mEq/L (23-29) L 07/25/17 05:10 Creatinine 0.26 mg/dL (0.60-1.20) L 07/25/17 05:10 BUN/Creatinine Ratio 27 (6-26) H 07/25/17 05:10 Calculated Osmolality 274 (280-300) L 07/25/17 05:10 Calcium 8.1 mg/dL (8.6-10.3) L 07/25/17 05:10 Troponin I 0.05 ng/mL (< 0.04) H* 07/25/17 11:12 - Diagnostic Findings CT scan - chest: report reviewed, image reviewed - Clinical Findings Intake & Output: Intake & Output 07/25/17 07/25/17 07/25/17 07:59 15:59 23:59 Intake Total 1440 / 1440 Output Total 500 / 500 Balance -500 / -500 1440 / 1440 Weight 42.2 kg Consult Discharge Plan - Plan Referrals: Les Martines DO [Primary Care Provider] -
[2017-07-25] MEDS: Ringers Solution, Lactated 1,000 ML IVC SCH (17:15)
[2017-07-25] MEDS: Budesonide/Formoterol 160/4.5 MDI IH SCH (20:43)
[2017-07-25] MEDS: methylPREDNISolone 125 MG/2 ML VIAL IVP SCH (22:53)
[2017-07-26] MEDS: *HR* OxyCODONE/APAP 5/325 TABLET PO PRN ×4 (02:43→21:12)
[2017-07-26] MEDS: Acetaminophen 325 MG TABLET PO PRN ×2 (05:39→13:02)
[2017-07-26] MEDS: *HR* Heparin 5,000 UNIT/ML VIAL SQ SCH ×3 (05:40→21:13)
[2017-07-26] MEDS: Ipratropium/Albuterol Neb 3 ML IH PRN ×3 (05:53→22:34)
[2017-07-26] MEDS: Budesonide/Formoterol 160/4.5 MDI IH SCH ×2 (07:21→20:14)
[2017-07-26 08:10] LABS: Hematocrit 32.9 % (35.3-44.9); Hemoglobin 11.2 g/dL (11.5-15.4); Mean Corpuscular Hemoglobin 31.4 pg (28.0-33.3); Mean Corpuscular Volume 92.2 fL (83.0-100.0); Mean Platelet Volume 8.8 fL (9.4-12.4); Platelet Count 361 K/mcL (140-400); Red Blood Count 3.57 M/mcL (3.82-4.97); Red Cell Distribution Width 12.3 % (11.5-14.5)
[2017-07-26] MEDS: (Fluticasone/Vilanterol [Breo Ellipta 100-25 Mcg Inh]) IH SCH (08:31)
[2017-07-26] MEDS: methylPREDNISolone 125 MG/2 ML VIAL IVP SCH ×2 (08:39→14:52)
[2017-07-26] MEDS: Famotidine 20 MG TABLET PO SCH ×2 (08:41→21:10)
[2017-07-26] MEDS: diazePAM 10 MG TABLET PO SCH ×3 (08:41→21:12)
[2017-07-26] MEDS: OXcarbazepine 150 MG TABLET PO SCH ×2 (08:41→21:11)
[2017-07-26] MEDS: Doxycycline 100 MG in 0.9 % Sodium Chloride Mini Bag 100 ML IVPB SCH ×2 (10:25→23:55)
--- NOTE | 2017-07-26 12:27 | Internal Med Progress Note ---
Date of Encounter: 07/26/17 Time of Encounter: 12:25 - Assessment and plan (1) Exertional shortness of breath Current Visit: Yes Status: Acute Assessment and plan: clinically improved (2) Acute exacerbation of chronic obstructive pulmonary disease (COPD) Current Visit: Yes Status: Acute Assessment and plan: Clinically improved appreciate pulmonary input with adjustment to her Solu- Medrol and additional breathing treatment (3) Epilepsy Current Visit: Yes Status: Chronic Assessment and plan: No recent seizure episode Qualifiers: Epilepsy type: unspecified Intractability: not intractable Status epilepticus: without status epilepticus Qualified Code(s): G40.909 - Epilepsy , unspecified, not intractable, without status epilepticus - Time Spent With Patient Total time spent is greater than 50% in coordination of care (as documented) at patient's floor/unit and/or counseling patient: - Subjective Interval history: Patient with copd and seizure disorder admiited with productive cough and wheezing today patient is not getting better stll wheezing insp and exp will dc prednisone and start solumedrol and consult pulm Today patient seen and examined has multiple nonspecific complaints pain had made feeling weak shortness of breath however is better examined at wheezing has also improved - Constitutional Vitals: Temp Pulse Resp BP Pulse Ox 98.2 F 84 14 122/73 96 07/26/17 11:44 07/26/17 11:44 07/26/17 11:44 07/26/17 11:44 07/26/17 11:44 General appearance: Present: cachectic, A&O X 3, answers questions appropriately - Eye Eye exam: Present: PERRL, conjuntiva pink, sclera anicteric Pupils: Present: PERRL - Neck Neck exam general surgery: Present: supple, trachea midline. Absent: lymphadenopathy - Respiratory Respiratory exam: Present: prolonged expiratory phase, wheezes - Cardiovascular Cardiovascular exam: Present: RRR, +S1, +S2. Absent: diastolic murmur, gallop, rubs, systolic murmur - GI/Abdominal GI/Abdominal exam: Present: normal bowel sounds, soft, no peritoneal signs. Absent: distended, tenderness Internal Medicine: Result - Labs CBC & Chem 7: 07/26/17 07:14 07/25/17 05:10 Labs: Short CBC 07/26/17 Range/Units 07:14 WBC 14.6 H (4.3-11.1) K/mcL Hgb 11.2 L (11.5-15.4) g/dL Hct 32.9 L (35.3-44.9) % Plt Count 361 (140-400) K/mcL Consult Discharge Plan - Plan Referrals: Les Martines DO [Primary Care Provider] - 08/02/17 1:30 pm
[2017-07-26] MEDS ORDERED: Menthol 9.1 MG LOZENGE PO PRN (12:39)
[2017-07-26] MEDS: 0.9 % Sodium Chloride 1,000 ML IVC SCH (12:59)
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
--- NOTE | 2017-07-26 16:37 | Electrocardiograph Report ---
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
[2017-07-27] MEDS: methylPREDNISolone 125 MG/2 ML VIAL IVP SCH ×3 (00:13→15:11)
[2017-07-27] MEDS: 0.9 % Sodium Chloride 1,000 ML IVC SCH ×2 (02:10→15:59)
[2017-07-27] MEDS: *HR* OxyCODONE/APAP 5/325 TABLET PO PRN ×4 (03:10→21:34)
[2017-07-27] MEDS: *HR* Heparin 5,000 UNIT/ML VIAL SQ SCH ×3 (06:04→21:34)
[2017-07-27] MEDS: Ipratropium/Albuterol Neb 3 ML IH PRN ×3 (07:34→23:25)
[2017-07-27] MEDS: Budesonide/Formoterol 160/4.5 MDI IH SCH ×2 (07:34→19:38)
--- NOTE | 2017-07-27 09:01 | Neurology Progress Note ---
Date of Encounter: 07/27/17 Time of Encounter: 07:59 Assessment and Plan (1) Dilantin toxicity Current Visit: Yes Status: Acute Dilantin level was noted to be elevated though it is not significantly elevated but considering clinical symptoms she does exhibiting all features of Dilantin toxicity predominantly dizziness and ataxia along with mild dysmetria on finger- to-nose which is quite common symptoms of high 11 of Dilantin. Explained to the patient in detail that her symptoms are likely related to elevated level of Dilantin she does need adjustment of her medication though she did not like any neurologist to make any changes in her medication but had explained to her in detail that it is quite important that we need to hold her Dilantin until have level become therapeutic and clinically she gets better particularly with gait and balance otherwise she is at high risk of fall She does understand now and agreed hold Dilantin this afternoon and the evening dose of for Dilantin Check Dilantin level in the morning and we may resume from the morning if level is therapeutic and clinically she is better I would recommend using 300 mg 3 times a day initially at that could be readjusted after checking the Dilantin level back again. Also suggest to check carbamazepine level at it might be elevated as well. In the meantime continue on the current dose of carbamazepine. Patient should be on fall precautions as high risk for fall because of elevated level of Dilantin Also suggest getting a CT of the head to make sure no other underlying intracranial process Qualifiers: Encounter type: initial encounter Injury intent: accidental or unintentional Qualified Code(s): T42.0X1A - Poisoning by hydantoin derivatives , accidental (unintentional), initial encounter (2) Epilepsy Current Visit: Yes Status: Chronic Qualifiers: Epilepsy type: unspecified Intractability: not intractable Status epilepticus: without status epilepticus Qualified Code(s): G40.909 - Epilepsy , unspecified, not intractable, without status epilepticus Subjective Interval history: Patient continued to be dizzy lightheaded and also having difficulty with her gait and balance though no evidence of any acute infarct she did have a few seizures during night that she feels like it but no clinical seizures during the daytime her Dilantin level noted to be 22.3 she remain on the high doses of Dilantin that she is been taking for quite a few years along with carbamazepine. Objective - Constitutional Vitals: Temp Pulse Resp BP Pulse Ox 98.2 F 90 16 123/75 98 07/27/17 07:00 07/27/17 07:00 07/27/17 07:34 07/27/17 07:00 07/27/17 07:34 Results - Laboratory Findings CBC and BMP: 07/26/17 07:14 07/25/17 05:10 Abnormal lab findings: Abnormal lab results WBC 14.6 K/mcL (4.3-11.1) H 07/26/17 07:14 RBC 3.57 M/mcL (3.82-4.97) L 07/26/17 07:14 Hgb 11.2 g/dL (11.5-15.4) L 07/26/17 07:14 Hct 32.9 % (35.3-44.9) L 07/26/17 07:14 MPV 8.8 fL (9.4-12.4) L 07/26/17 07:14 Neutrophils # 15.9 K/mcL (1.6-8.9) H 07/25/17 05:10 Sodium 133 mEq/L (136-145) L 07/25/17 05:10 Carbon Dioxide 20 mEq/L (23-29) L 07/25/17 05:10 Creatinine 0.26 mg/dL (0.60-1.20) L 07/25/17 05:10 BUN/Creatinine Ratio 27 (6-26) H 07/25/17 05:10 Calculated Osmolality 274 (280-300) L 07/25/17 05:10 Calcium 8.1 mg/dL (8.6-10.3) L 07/25/17 05:10 Troponin I 0.05 ng/mL (< 0.04) H* 07/25/17 11:12 Phenytoin 22.3 mcg/mL (10.0-20.0) H 07/26/17 14:54 Consult Discharge Plan - Plan Referrals: Les Martines DO [Primary Care Provider] - 08/02/17 1:30 pm
[2017-07-27] MEDS: OXcarbazepine 150 MG TABLET PO SCH ×2 (09:25→21:33)
[2017-07-27] MEDS: diazePAM 10 MG TABLET PO SCH ×3 (09:25→21:33)
[2017-07-27] MEDS: Famotidine 20 MG TABLET PO SCH ×2 (09:25→21:34)
[2017-07-27] MEDS: Doxycycline 100 MG in 0.9 % Sodium Chloride Mini Bag 100 ML IVPB SCH (11:45)
--- NOTE | 2017-07-27 14:50 | Internal Med Progress Note ---
Date of Encounter: 07/27/17 Time of Encounter: 14:30 - Assessment and plan (1) Acute exacerbation of chronic obstructive pulmonary disease (COPD) Current Visit: Yes Status: Acute Assessment and plan: continue nebs , steroids and antibiotics. Pulmonary following (2) Epilepsy Current Visit: Yes Status: Chronic Assessment and plan: continue dilantin. Neuro following. Dilantin levels in am Qualifiers: Epilepsy type: unspecified Intractability: not intractable Status epilepticus: without status epilepticus Qualified Code(s): G40.909 - Epilepsy , unspecified, not intractable, without status epilepticus - Time Spent With Patient Total time spent is greater than 50% in coordination of care (as documented) at patient's floor/unit and/or counseling patient: - Subjective Interval history: No acute events overnight - Constitutional Vitals: Temp Pulse Resp BP Pulse Ox 98.0 F 99 20 119/69 94 07/27/17 11:09 07/27/17 11:07/27/17 11:07/27/17 11:07/27/17 14:10 General appearance: Present: cachectic, A&O X 3, answers questions appropriately - Head Head exam: Present: atraumatic, normocephalic - Neck Neck exam general surgery: Present: supple, trachea midline. Absent: lymphadenopathy - Respiratory Respiratory exam: Absent: accessory muscle use, rales, rhonchi, wheezes Additional comments: Diffuse wheezing bilaterally - GI/Abdominal GI/Abdominal exam: Present: normal bowel sounds, soft, no peritoneal signs. Absent: distended, tenderness - Extremities Exam Extremities exam: Present: warm, radial pulses palpable and symmetrical. Absent : calf tenderness, cyanotic, pedal edema - Neurological Exam Neurological exam: Present: CN II-XII intact, oriented X3, no focal deficits. Absent: pronater drift, facial droop, speech deficit Internal Medicine: Result - Labs CBC & Chem 7: 07/26/17 07:14 07/25/17 05:10 - Impressions Impressions Head CT 07/27/17 12:15 IMPRESSION: No acute intracranial abnormality. No change from the prior study. D/ / Grupo Avila MD / Grupo Avila MD Interpreting Provider: Grupo Avila MD Consult Discharge Plan - Plan Referrals: Les Martines DO [Primary Care Provider] - 08/02/17 1:30 pm
[2017-07-28] MEDS: Doxycycline 100 MG in 0.9 % Sodium Chloride Mini Bag 100 ML IVPB SCH ×2 (00:29→11:04)
[2017-07-28] MEDS: methylPREDNISolone 125 MG/2 ML VIAL IVP SCH ×2 (00:29→08:16)
[2017-07-28] MEDS: *HR* Heparin 5,000 UNIT/ML VIAL SQ SCH (05:29)
[2017-07-28 06:34] LABS: Basophils # 0.1 K/mcL (0.0-0.2); Basophils % 0.9 %; Hematocrit 35.3 % (35.3-44.9); Hemoglobin 12.3 g/dL (11.5-15.4); Immature Granulocytes % 5.8 % (0-4); Immature Platelets 0.8 % (1.1-6.1); Lymphocytes # 2.7 K/mcL (0.6-4.6); Lymphocytes % 21.8 %; Mean Corpuscular HGB Conc 34.8 g/dL (31.6-35.5); Mean Corpuscular Hemoglobin 32.9 pg (28.0-33.3); Mean Corpuscular Volume 94.4 fL (83.0-100.0); Mean Platelet Volume 8.7 fL (9.4-12.4); Monocytes # 0.4 K/mcL (0.0-1.3); Monocytes % 3.4 %; Neutrophils # 8.4 K/mcL (1.6-8.9); Nucleated Red Blood Cells 0.2 /100 WBC (0); Platelet Count 448 K/mcL (140-400); Red Blood Count 3.74 M/mcL (3.82-4.97); Segmented Neutrophils % 68.1 %
[2017-07-28] MEDS: *HR* OxyCODONE/APAP 5/325 TABLET PO PRN ×2 (06:34→12:52)
[2017-07-28] MEDS: 0.9 % Sodium Chloride 1,000 ML IVC SCH (06:34)
[2017-07-28 06:46] LABS: BUN/Creatinine Ratio 22 (6-26); Blood Urea Nitrogen 9 mg/dL (6-20); Calcium 8.2 mg/dL (8.6-10.3); Carbon Dioxide 22 mEq/L (23-29); Chloride 104 mEq/L (98-107); Glucose 131 mg/dL (70-105); Magnesium 1.7 mg/dL (1.6-2.6); Osmolality,Calculated 286 (280-300); Phosphorous 3.2 mg/dL (2.7-4.5); Potassium 4.2 mEq/L (3.5-5.1); Sodium 138 mEq/L (136-145); eGFR For African Americans > 60 (> 60); eGFR For Non-African Americans > 60 (> 60)
[2017-07-28 06:49] LABS: Thyroid Stimulating Hormone 1.734 mcIU/mL (0.340-5.600)
[2017-07-28 07:00] LABS: Folate 14.8 ng/mL (3.0-16.0)
[2017-07-28] MEDS: OXcarbazepine 150 MG TABLET PO SCH (08:16)
[2017-07-28] MEDS: diazePAM 10 MG TABLET PO SCH ×2 (08:16→13:58)
[2017-07-28] MEDS: Famotidine 20 MG TABLET PO SCH (08:16)
[2017-07-28] MEDS: Budesonide/Formoterol 160/4.5 MDI IH SCH (08:24)
[2017-07-28 08:47] LABS: Platelet Estimate Increased (Normal)
--- NOTE | 2017-07-28 09:05 | Neurology Progress Note ---
Date of Encounter: 07/28/17 Time of Encounter: 07:30 Assessment and Plan (1) Dilantin toxicity Current Visit: Yes Status: Acute Clinically improving Dilantin dose was on hold for afternoon and evening dose yesterday She had been on slightly higher doses of the Dilantin Depending on the level today be may resume 300 mg in the morning and 300 at night though previously she was on quite a higher dose Need to check the level in the next 5 days after the discharge and at just the dose accordingly Continue on the current dose of carbamazepine it may take a few days for results to be back PTOT consultation to make sure patient is ambulating well as with the high level of Dilantin toxicity dizziness and difficulty balance is her main cause which can lead to fall If patient remained stable at level is within normal limit okay to discharge with follow-up with primary care physician And with neurology if the patient agrees Qualifiers: Encounter type: sequela Injury intent: accidental or unintentional Qualified Code(s): T42.0X1S - Poisoning by hydantoin derivatives, accidental ( unintentional), sequela (2) Epilepsy Current Visit: Yes Status: Chronic Qualifiers: Epilepsy type: unspecified Intractability: not intractable Status epilepticus: without status epilepticus Qualified Code(s): G40.909 - Epilepsy , unspecified, not intractable, without status epilepticus Subjective Interval history: Patient seems to be doing better less dizzy and lightheaded as she was before able to get up and walk with help generally feeling better no evidence of any acute infarct Dilantin and carbamazepine level is pending now Objective - Constitutional Vitals: Temp Pulse Resp BP Pulse Ox 98.0 F 96 14 152/91 95 07/28/17 06:40 07/28/17 06:40 07/28/17 06:40 07/28/17 06:40 07/28/17 08:19 Results - Laboratory Findings CBC and BMP: 07/28/17 05:30 07/28/17 05:30 Abnormal lab findings: Abnormal lab results WBC 12.3 K/mcL (4.3-11.1) H 07/28/17 05:30 RBC 3.74 M/mcL (3.82-4.97) L 07/28/17 05:30 Plt Count 448 K/mcL (140-400) H 07/28/17 05:30 MPV 8.7 fL (9.4-12.4) L 07/28/17 05:30 Immature Gran % 5.8 % (0-4) H 07/28/17 05:30 Nucleated RBCs/100 WBC 0.2 /100 WBC (0) H 07/28/17 05:30 Platelet Estimate Increased (Normal) H 07/28/17 05:30 Immature Plt Fraction 0.8 % (1.1-6.1) L 07/28/17 05:30 Carbon Dioxide 22 mEq/L (23-29) L 07/28/17 05:30 Creatinine 0.41 mg/dL (0.60-1.20) L 07/28/17 05:30 Glucose 131 mg/dL (70-105) H 07/28/17 05:30 Calcium 8.2 mg/dL (8.6-10.3) L 07/28/17 05:30 Troponin I 0.05 ng/mL (< 0.04) H* 07/25/17 11:12 Phenytoin 22.3 mcg/mL (10.0-20.0) H 07/26/17 14:54 Consult Discharge Plan - Plan Referrals: Les Martines DO [Primary Care Provider] - 08/02/17 1:30 pm
[2017-07-28 10:15] LABS: Carbamazepine (Tegretol) < 1 mcg/mL (4-12); Phenytoin (Dilantin) 18.8 mcg/mL (10.0-20.0)
[2017-07-28 11:09] VITALS: BP 155/85
--- NOTE | 2017-07-28 12:55 | Discharge Summary ---
- NOTES TO OUTPATIENT PROVIDER Notes to Outpatient Provider: Follow up dilantin levels in 5 days Orders not resulted at time of discharge: Pending orders 07/26/17 14:54 Phenytoin (Dilantin) Free Stat 07/28/17 05:30 Phenytoin (Dilantin) Free AM 0400 07/29/17 04:00 Basic Metabolic Panel AM 0400 (Cancelled) CBC [Complete Blood Count] [HEME] AM 0400 (Cancelled) 07/30/17 04:00 Basic Metabolic Panel AM 0400 (Cancelled) CBC [Complete Blood Count] [HEME] AM 0400 (Cancelled) 07/31/17 04:00 Basic Metabolic Panel AM 0400 (Cancelled) CBC [Complete Blood Count] [HEME] AM 0400 (Cancelled) 08/01/17 04:00 Basic Metabolic Panel AM 0400 (Cancelled) CBC [Complete Blood Count] [HEME] AM 0400 (Cancelled) 08/02/17 04:00 Basic Metabolic Panel AM 0400 (Cancelled) CBC [Complete Blood Count] [HEME] AM 0400 (Cancelled) Date of Encounter: 07/28/17 Time of Encounter: 12:50 - Discharge Diagnosis (1) Acute exacerbation of chronic obstructive pulmonary disease (COPD) Priority: Primary Status: Acute Assessment and Plan: She was treated with nebs , steroids and antibiotics. She was initally started on po prednisone but switched to IV solumedrol when her symptoms weren't resolving. she has been tapered down to po steroids and her COPD exacerbation has resolved (2) Dilantin toxicity Priority: Secondary Status: Acute Assessment and Plan: She was also managed for dilantin toxicity. Dilantin levels were noted to be elevated. Neuro recommended holding her dilantin. Repeat levels came back WNL at 18. neuro has therefore recommeneded reducing her outpatient dose to 300mg BID. She is to follow up for repeat dilantin levels in 5 days Qualifiers: Encounter type: sequela Injury intent: accidental or unintentional Qualified Code(s): T42.0X1S - Poisoning by hydantoin derivatives, accidental ( unintentional), sequela (3) Epilepsy Priority: Secondary Status: Chronic Assessment and Plan: continue dilantin. Neuro following. Discharge on dilanin 300mg BID Qualifiers: Epilepsy type: unspecified Intractability: not intractable Status epilepticus: without status epilepticus Qualified Code(s): G40.909 - Epilepsy , unspecified, not intractable, without status epilepticus Hospital course: Ms. Allison is a 56 year old female - Time Spent with Patient Total time spent providing and/or coordinating discharge services: - Discharge Medications Prescriptions: predniSONE [PredniSONE] 40 mg PO DAILY #5 tablet Home Medications: Albuterol Sulfate [Proair Hfa] 2 puff IH Q4H PRN 11/17/15 [History] Alendronate Sodium [Fosamax] 70 mg PO QWEEK 11/17/15 [History] Lactose-Reduced Food [Ensure Complete] 1 bottle PO TID 11/17/15 [History] Oxcarbazepine [Oxtellar Xr] 300 mg PO QAM 11/17/15 [History] Oxcarbazepine [Oxtellar Xr] 600 mg PO HS 11/17/15 [History] Oxycodone HCl/Acetaminophen [Percocet 5-325 mg Tablet] 1 tab PO Q6H PRN [History] Ranitidine HCl [Heartburn Relief] 150 mg PO BID 11/17/15 [History] diazePAM [Valium] 10 mg PO TID 11/17/15 [History] Fluticasone/Vilanterol [Breo Ellipta 100-25 Mcg INH] 1 puff IH DAILY 07/24/17 [ History] Phenytoin ER [Dilantin ER] 300 mg PO BID 07/24/17 [History] predniSONE [PredniSONE] 40 mg PO DAILY #5 tablet 07/28/17 [Rx] Allergies/Adverse Reactions: 3 Allergy/AdvReac Type Severity Reaction Status Date / Time levofloxacin [From Levaquin] Allergy Hives Verified 07/24/17 20:11 Date of admission: 07/24/17 21:18 Primary care physician: Brandan Flanagan Consults: 07/24/17 22:57 Consult to Physical Therapy [CONS] Routine Comment: Evaluate, develop and implement POC Reason for Consult: Leg weakness Does patient have active BEDREST order?: No Is patient medically & hemodynamically stable?: Yes Patient assessed for mobility or mobilized this visit?: No 07/25/17 14:12 Consult to Pulmonology [CONS] Routine Consulting Provider: [facility] Reason for Consult: copd exercebation not getting better Call Completed: No 07/25/17 19:35 Consult to Band Cutting Machine Operator [CONS] Routine Reason for SW Consult: home health 07/26/17 09:35 Consult to Invasive Line Access Team [CONS] Routine Reason for Consult: limited veins access Line Type: EPIV 07/26/17 13:36 Consult to Neurology [CONS] Routine Consulting Provider: [facility] Reason for Consult: seizire disorder patient woke up says she feels she had seizure not withnessed by staff Time Notified: 13:37 Call Completed: Yes - Constitutional Vitals: Temp Pulse Resp BP Pulse Ox 98.2 F 91 14 155/85 91 07/28/17 11:08 07/28/17 11:08 07/28/17 11:08 07/28/17 11:08 07/28/17 11:08 General appearance: Present: cachectic, A&O X 3, answers questions appropriately - Patient Status Disposition: Home, Self-Care Condition: Good - Discharge Instructions Instructions: Prednisone (By mouth), How to Choose and Use a Walker (GEN), Chronic Obstructive Pulmonary Disease (DC), Chronic Obstructive Pulmonary Disease (GEN), Dilantin Toxicity (GEN), Dilantin Toxicity, Placement Officer (GEN) Follow Up With: Destin Bull MD [Partnered Physician] - 08/10/17 10:15 am Les Martines DO [Primary Care Provider] - 08/02/17 1:30 pm Additional Instructions: Follow up dilantin levels in 5 days
--- NOTE | 2017-07-28 13:01 | Physician Discharge Referral ---
- Diagnosis (1) Acute exacerbation of chronic obstructive pulmonary disease (COPD) Priority: Primary Status: Acute (2) Epilepsy Priority: Primary Status: Chronic - Respiratory Orders Smoking Cessation: Smoking cessation has been advised. For more information, call the [place] Tobacco Quit Line at 2-654-OYJU-NOW. - Diet/Nutrition Diet/Nutrition Orders: Regular - Services Needed Following services are medically necessary services: Nursing, Home Health Aide, Physical Therapy - Transfer Medications Prescriptions: predniSONE [PredniSONE] 40 mg PO DAILY #5 tablet Home Medications: Albuterol Sulfate [Proair Hfa] 2 puff IH Q4H PRN 11/17/15 [History] Alendronate Sodium [Fosamax] 70 mg PO QWEEK 11/17/15 [History] Lactose-Reduced Food [Ensure Complete] 1 bottle PO TID 11/17/15 [History] Oxcarbazepine [Oxtellar Xr] 300 mg PO QAM 11/17/15 [History] Oxcarbazepine [Oxtellar Xr] 600 mg PO HS 11/17/15 [History] Oxycodone HCl/Acetaminophen [Percocet 5-325 mg Tablet] 1 tab PO Q6H PRN [History] Ranitidine HCl [Heartburn Relief] 150 mg PO BID 11/17/15 [History] diazePAM [Valium] 10 mg PO TID 11/17/15 [History] Fluticasone/Vilanterol [Breo Ellipta 100-25 Mcg INH] 1 puff IH DAILY 07/24/17 [ History] Phenytoin ER [Dilantin ER] 300 mg PO BID 07/24/17 [History] predniSONE [PredniSONE] 40 mg PO DAILY #5 tablet 07/28/17 [Rx] Allergies/Adverse Reactions: 3 Allergy/AdvReac Type Severity Reaction Status Date / Time levofloxacin [From Levaquin] Allergy Hives Verified 07/24/17 20:11 Certification: Further, I certify that my clinical findings support that this patient is homebound (i.e. absences from home require considerable and taxing effort and are for medical reasons or hoahaoism services or infrequently or short duration when for other reasons) because: Homebound Reason: Patient requires assistance of a person or device to safely leave home Attestation: My signature below is to certify that this patient is under my care and that I, or nurse practitioner, or a physician's general surgery physician assistant working with me, has a face-to -face encounter with this patient.
[2017-07-29] MEDS ORDERED: predniSONE 20 MG TABLET PO SCH (09:00)
== END 2017-07-28 15:11 | disposition home or self-care (01) ==
LOC: EMEROO 15:01 → 3BNU 15:01 → EMEROO 21:05 → UNDODISOB 21:19
PROVIDERS: ADMIT Internal Medicine; ATTEND Internal Medicine

== ENCOUNTER 2017-08-24 10:43 | Inpatient (IN) ==
[2017-08-24] MEDS ORDERED: Ipratropium/Albuterol Neb 3 ML IH ONE (10:46)
[2017-08-24] MEDS ORDERED: methylPREDNISolone 125 MG/2 ML VIAL IVP ONE (10:51)
--- NOTE | 2017-08-24 10:53 | Emergency Department Note ---
Disposition Clinical Impression: Acute exacerbation of chronic obstructive airways disease Disposition: Admitted As Inpatient Condition: Fair Referrals: Les Martines DO [Primary Care Provider] - Forms: ED Satisfaction Letter Time of Disposition: 15:51 SOB HPI - General Chief Complaint: ED Shortness of Breath/Dyspnea Stated Complaint: OMER Time Seen by Provider: 08/24/17 10:45 Source: patient Limitations: no limitations Nursing Notes Reviewed: Yes Vital Signs Reviewed: Yes - History of Present Illness 56-year-old female with history of COPD not on oxygen, presents with shortness of breath for the last several days. Patient has been wheezing coughing, they are brought in by EMS and given 1 DuoNeb treatment in route. The patient states that she is having worsening productive cough for the last few days. Patient reports some chest pain worse with deep inspiration and cough. 4 out of 10. Patient denies history of intubation or ICU admission. Patient states that she is not currently on oxygen but she is to be 5 years ago. Pt Subjective Complaint: shortness of breath Context: recent illness Severity: moderate Improves with: nothing Worsens with: nothing Known history of: COPD Associated symptoms: Reports: cough. Denies: chest pain, pain with inspiration , fever, wheezing Treatment prior to arrival: none Cough present: Yes - Related Data Home Medications Medication Instructions Recorded Confirmed Albuterol Sulfate [Proair Hfa] 2 puff IH Q4H PRN 11/17/15 08/24/17 Alendronate Sodium [Fosamax] 70 mg PO QWEEK 11/17/15 08/24/17 Ranitidine HCl [Heartburn Relief] 150 mg PO BID 11/17/15 08/24/17 diazePAM [Valium] 10 mg PO TID 11/17/15 08/24/17 Fluticasone/Vilanterol [Breo 1 puff IH DAILY 07/24/17 08/24/17 Ellipta 100-25 Mcg INH] OXcarbazepine [Oxcarbazepine] 300 mg PO QAM 08/24/17 08/24/17 OXcarbazepine [Oxcarbazepine] 600 mg PO HS 08/24/17 08/24/17 Oxycodone HCl/Acetaminophen 1 tab PO Q6H PRN 08/24/17 08/24/17 [Percocet 5-325 mg Tablet] Phenytoin ER [Dilantin ER] 100 mg PO QAM 08/24/17 08/24/17 Phenytoin ER [Dilantin ER] 200 mg PO QPM 08/24/17 08/24/17 Allergies Allergy/AdvReac Type Severity Reaction Status Date / Time levofloxacin [From Levaquin] Allergy Hives Verified 07/24/17 20:11 All systems ED: reviewed and negative except as stated. Review of Systems: As Per HPI Constitutional: Reports: fever, chills Eyes: Denies: eye pain ENT ED: Denies: ear pain Cardiovascular: Reports: chest pain Respiratory: Reports: as per HPI, cough, dyspnea, wheezes. Denies: hemoptysis Gastrointestinal: Denies: abdominal pain, nausea, vomiting Genitourinary: Denies: urgency Musculoskeletal: Denies: back pain, neck pain Integumentary: Denies: rash Neurological: Denies: headache Psychiatric: Denies: anxiety Past Medical History - Past Medical History Attestation: Yes The following information was validated with the patient. Source: patient Medical history: Reports: COPD, seizures, other Surgical history: Reports: hysterectomy (tubal ligation), orthopedic, other ( left knee surgery), other Psychiatric history: Reports: no psych history - Social History Smoking Status: Current some day smoker Smokeless Tobacco Status: No Alcohol use: Reports: none Drug use: Reports: none Physical Exam Constitutional: Frail cachectic female in moderate respiratory distress Eyes: PERRLA, sclera anicteric ENT & Mouth: MM dry Neck: normal inspection, neck is supple Resp: Diffuse coarse breath sounds inspiratory and expiratory wheezes. CV: Tachycardia. no m/g/r GI: normal inspection, soft, no guarding or rigidity Neuro: A&O3, CNII-XII grossly intact, JIMENEZ Skin: on limited exam, skin intact with no rashes or lesions - General Limitations: no limitations General appearance: alert, in no apparent distress Course Course Narrative: Patient is evidence of coarse inspiratory sounds retractions, and inspiratory expiratory wheezing given additional do nebs, plan develop additional albuterol patient is to be admitted to the hospital most likely, will after road test and see if she is hypoxic at baseline she does not require oxygen. Her EKG shows no acute ischemic changes, RAMONA-1 DuoNeb in route - Reevaluation(s) Reevaluation #1: Patient unable to tolerate ambulation throughout the emergency department, therefore was admitted for COPD exacerbation. Admitted to the hospitalist Dr. Quarles Vital Signs Temperature 97.9 F 08/24/17 10:46 Pulse Rate 106 08/24/17 10:46 Respiratory Rate 28 08/24/17 10:46 Blood Pressure 138/85 08/24/17 10:46 O2 Sat by Pulse Oximetry 99 08/24/17 10:46 Temperature 97.9 F 08/24/17 10:46 Pulse Rate 101 08/24/17 14:31 Respiratory Rate 22 08/24/17 14:31 Blood Pressure 128/92 08/24/17 14:31 O2 Sat by Pulse Oximetry 97 08/24/17 14:31 Oxygen Delivery Oxygen Delivery Nasal Cannula Shortness of Breath/Dyspnea - Differential Diagnosis Likely: acute exacerbation of chronic obstructive airways disease, congestive heart failure, pneumonia, pulmonary embolism - Medical Records Medical records reviewed: Yes I reviewed the patient's medical records. - Lab Data Lab results reviewed: Yes I reviewed the patient's lab results. Result diagrams: 08/24/17 11:24 08/24/17 11:24 Lab Results 08/24/17 08/24/17 08/24/17 Range/Units 11:24 11:24 11:24 WBC 6.7 (4.3-11.1) K/mcL RBC 4.23 (3.82-4.97) M/mcL Hgb 13.8 (11.5-15.4) g/dL Hct 38.8 (35.3-44.9) % MCV 91.7 (83.0-100.0) fL MCH 32.6 (28.0-33.3) pg MCHC 35.6 H (31.6-35.5) g/dL RDW 13.0 (11.5-14.5) % Plt Count 302 (140-400) K/mcL MPV 8.6 L (9.4-12.4) fL Immature Gran % 0.3 (0-4) % Seg Neutrophils % 63.6 % Lymphocytes % 25.5 % Monocytes % 7.4 % Eosinophils % 2.7 % Basophils % 0.5 % Neutrophils # 4.2 (1.6-8.9) K/mcL Lymphocytes # 1.7 (0.6-4.6) K/mcL Monocytes # 0.5 (0.0-1.3) K/mcL Eosinophils # 0.2 (0.0-0.6) K/mcL Basophils # 0.0 (0.0-0.2) K/mcL Nucleated RBCs/100 WBC 0.3 H (0) /100 WBC PT 11.9 (9.4-12.1) Seconds INR 1.1 APTT 37.0 H (26.0-36.0) Seconds VBG pH (7.32-7.42) pH Units VBG pCO2 (41-51) mmHg VBG pO2 (25-50) mmHg VBG HCO3 (21-27) mEq/L Sodium 131 L (136-145) mEq/L Potassium 3.7 (3.5-5.1) mEq/L Chloride 97 L (98-107) mEq/L Carbon Dioxide 27 (23-29) mEq/L BUN 9 (6-20) mg/dL Creatinine 0.39 L (0.60-1.20) mg/dL Est GFR ( Amer) > 60 (> 60) Est GFR (Non-Af Amer) > 60 (> 60) BUN/Creatinine Ratio 23 (6-26) Glucose 122 H (70-105) mg/dL Calculated Osmolality 272 L (280-300) Lactic Acid (0.5-2.2) mmol/L Calcium 9.3 (8.6-10.3) mg/dL Troponin I < 0.03 (< 0.04) ng/mL B-Natriuretic Peptide (Less than 100) pg/mL Phenytoin 6.4 L (10.0-20.0) mcg/mL 08/24/17 08/24/17 08/24/17 Range/Units 11:24 11:24 12:22 WBC (4.3-11.1) K/mcL RBC (3.82-4.97) M/mcL Hgb (11.5-15.4) g/dL Hct (35.3-44.9) % MCV (83.0-100.0) fL MCH (28.0-33.3) pg MCHC (31.6-35.5) g/dL RDW (11.5-14.5) % Plt Count (140-400) K/mcL MPV (9.4-12.4) fL Immature Gran % (0-4) % Seg Neutrophils % % Lymphocytes % % Monocytes % % Eosinophils % % Basophils % % Neutrophils # (1.6-8.9) K/mcL Lymphocytes # (0.6-4.6) K/mcL Monocytes # (0.0-1.3) K/mcL Eosinophils # (0.0-0.6) K/mcL Basophils # (0.0-0.2) K/mcL Nucleated RBCs/100 WBC (0) /100 WBC PT (9.4-12.1) Seconds INR APTT (26.0-36.0) Seconds VBG pH 7.44 H (7.32-7.42) pH Units VBG pCO2 38 L (41-51) mmHg VBG pO2 184 H (25-50) mmHg VBG HCO3 26 (21-27) mEq/L Sodium (136-145) mEq/L Potassium (3.5-5.1) mEq/L Chloride (98-107) mEq/L Carbon Dioxide (23-29) mEq/L BUN (6-20) mg/dL Creatinine (0.60-1.20) mg/dL Est GFR ( Amer) (> 60) Est GFR (Non-Af Amer) (> 60) BUN/Creatinine Ratio (6-26) Glucose (70-105) mg/dL Calculated Osmolality (280-300) Lactic Acid 1.4 (0.5-2.2) mmol/L Calcium (8.6-10.3) mg/dL Troponin I (< 0.04) ng/mL B-Natriuretic Peptide 15 (Less than 100) pg/mL Phenytoin (10.0-20.0) mcg/mL - Radiology Data Radiology results reviewed: Yes I reviewed the patient's radiology results. Chest X-Ray 08/24/17 10:51 IMPRESSION: 1. Stable chest x-ray with no active pulmonary disease. D/ / Alejo Arce MD / Alejo Arce MD Interpreting Provider: Alejo Arce MD - EKG Data EKG attestation: Yes I reviewed and interpreted this EKG. EKG shows normal: Reports: sinus rhythm Rate: Reports: normal (96 bpm RI 178 QRS 7070 QTC [address] segment elevations or depressions.) Rhythm: Reports: NSR
[2017-08-24 11:40] LABS: Basophils % 0.5 %; Eosinophils # 0.2 K/mcL (0.0-0.6); Eosinophils % 2.7 %; Hematocrit 38.8 % (35.3-44.9); Hemoglobin 13.8 g/dL (11.5-15.4); Immature Granulocytes % 0.3 % (0-4); Lymphocytes # 1.7 K/mcL (0.6-4.6); Lymphocytes % 25.5 %; Mean Corpuscular HGB Conc 35.6 g/dL (31.6-35.5); Mean Corpuscular Hemoglobin 32.6 pg (28.0-33.3); Mean Corpuscular Volume 91.7 fL (83.0-100.0); Mean Platelet Volume 8.6 fL (9.4-12.4); Monocytes # 0.5 K/mcL (0.0-1.3); Monocytes % 7.4 %; Neutrophils # 4.2 K/mcL (1.6-8.9); Nucleated Red Blood Cells 0.3 /100 WBC (0); Platelet Count 302 K/mcL (140-400); Red Blood Count 4.23 M/mcL (3.82-4.97); Segmented Neutrophils % 63.6 %
--- NOTE | 2017-08-24 11:51 | Emergency Department Note ---
Disposition Clinical Impression: Acute exacerbation of chronic obstructive airways disease Disposition: Admitted As Inpatient Condition: Fair Referrals: Les Martines DO [Primary Care Provider] - Forms: ED Satisfaction Letter General Adult HPI - General Chief complaint: ED Shortness of Breath/Dyspnea Stated complaint: OMER Time Seen by Provider: 08/24/17 10:45 - Related Data Home Medications Medication Instructions Recorded Confirmed Albuterol Sulfate [Proair Hfa] 2 puff IH Q4H PRN 11/17/15 08/24/17 Alendronate Sodium [Fosamax] 70 mg PO QWEEK 11/17/15 08/24/17 Ranitidine HCl [Heartburn Relief] 150 mg PO BID 11/17/15 08/24/17 diazePAM [Valium] 10 mg PO TID 11/17/15 08/24/17 Fluticasone/Vilanterol [Breo 1 puff IH DAILY 07/24/17 08/24/17 Ellipta 100-25 Mcg INH] OXcarbazepine [Oxcarbazepine] 300 mg PO QAM 08/24/17 08/24/17 OXcarbazepine [Oxcarbazepine] 600 mg PO HS 08/24/17 08/24/17 Oxycodone HCl/Acetaminophen 1 tab PO Q6H PRN 08/24/17 08/24/17 [Percocet 5-325 mg Tablet] Phenytoin ER [Dilantin ER] 100 mg PO QAM 08/24/17 08/24/17 Phenytoin ER [Dilantin ER] 200 mg PO QPM 08/24/17 08/24/17 Allergies Allergy/AdvReac Type Severity Reaction Status Date / Time levofloxacin [From Levaquin] Allergy Hives Verified 07/24/17 20:11 Past Medical History - Past Medical History Medical history: Reports: COPD, seizures, other Surgical history: Reports: hysterectomy (tubal ligation), orthopedic, other ( left knee surgery), other Psychiatric history: Reports: no psych history - Social History Smoking Status: Current some day smoker Smokeless Tobacco Status: No Alcohol use: Reports: none Drug use: Reports: none Course Vital Signs Temperature 97.9 F 08/24/17 10:46 Pulse Rate 106 08/24/17 10:46 Respiratory Rate 28 08/24/17 10:46 Blood Pressure 138/85 08/24/17 10:46 O2 Sat by Pulse Oximetry 99 08/24/17 10:46 Temperature 97.9 F 08/24/17 10:46 Pulse Rate 101 08/24/17 14:31 Respiratory Rate 22 08/24/17 14:31 Blood Pressure 128/92 08/24/17 14:31 O2 Sat by Pulse Oximetry 97 08/24/17 14:31 Oxygen Delivery Oxygen Delivery Nasal Cannula Medical Decision Making - Lab Data Result diagrams: 08/24/17 11:24 08/24/17 11:24 Lab Results 08/24/17 08/24/17 08/24/17 Range/Units 11:24 11:24 11:24 WBC 6.7 (4.3-11.1) K/mcL RBC 4.23 (3.82-4.97) M/mcL Hgb 13.8 (11.5-15.4) g/dL Hct 38.8 (35.3-44.9) % MCV 91.7 (83.0-100.0) fL MCH 32.6 (28.0-33.3) pg MCHC 35.6 H (31.6-35.5) g/dL RDW 13.0 (11.5-14.5) % Plt Count 302 (140-400) K/mcL MPV 8.6 L (9.4-12.4) fL Immature Gran % 0.3 (0-4) % Seg Neutrophils % 63.6 % Lymphocytes % 25.5 % Monocytes % 7.4 % Eosinophils % 2.7 % Basophils % 0.5 % Neutrophils # 4.2 (1.6-8.9) K/mcL Lymphocytes # 1.7 (0.6-4.6) K/mcL Monocytes # 0.5 (0.0-1.3) K/mcL Eosinophils # 0.2 (0.0-0.6) K/mcL Basophils # 0.0 (0.0-0.2) K/mcL Nucleated RBCs/100 WBC 0.3 H (0) /100 WBC PT 11.9 (9.4-12.1) Seconds INR 1.1 APTT 37.0 H (26.0-36.0) Seconds VBG pH (7.32-7.42) pH Units VBG pCO2 (41-51) mmHg VBG pO2 (25-50) mmHg VBG HCO3 (21-27) mEq/L Sodium 131 L (136-145) mEq/L Potassium 3.7 (3.5-5.1) mEq/L Chloride 97 L (98-107) mEq/L Carbon Dioxide 27 (23-29) mEq/L BUN 9 (6-20) mg/dL Creatinine 0.39 L (0.60-1.20) mg/dL Est GFR ( Amer) > 60 (> 60) Est GFR (Non-Af Amer) > 60 (> 60) BUN/Creatinine Ratio 23 (6-26) Glucose 122 H (70-105) mg/dL Calculated Osmolality 272 L (280-300) Lactic Acid (0.5-2.2) mmol/L Calcium 9.3 (8.6-10.3) mg/dL Troponin I < 0.03 (< 0.04) ng/mL B-Natriuretic Peptide (Less than 100) pg/mL Phenytoin 6.4 L (10.0-20.0) mcg/mL 08/24/17 08/24/17 08/24/17 Range/Units 11:24 11:24 12:22 WBC (4.3-11.1) K/mcL RBC (3.82-4.97) M/mcL Hgb (11.5-15.4) g/dL Hct (35.3-44.9) % MCV (83.0-100.0) fL MCH (28.0-33.3) pg MCHC (31.6-35.5) g/dL RDW (11.5-14.5) % Plt Count (140-400) K/mcL MPV (9.4-12.4) fL Immature Gran % (0-4) % Seg Neutrophils % % Lymphocytes % % Monocytes % % Eosinophils % % Basophils % % Neutrophils # (1.6-8.9) K/mcL Lymphocytes # (0.6-4.6) K/mcL Monocytes # (0.0-1.3) K/mcL Eosinophils # (0.0-0.6) K/mcL Basophils # (0.0-0.2) K/mcL Nucleated RBCs/100 WBC (0) /100 WBC PT (9.4-12.1) Seconds INR APTT (26.0-36.0) Seconds VBG pH 7.44 H (7.32-7.42) pH Units VBG pCO2 38 L (41-51) mmHg VBG pO2 184 H (25-50) mmHg VBG HCO3 26 (21-27) mEq/L Sodium (136-145) mEq/L Potassium (3.5-5.1) mEq/L Chloride (98-107) mEq/L Carbon Dioxide (23-29) mEq/L BUN (6-20) mg/dL Creatinine (0.60-1.20) mg/dL Est GFR ( Amer) (> 60) Est GFR (Non-Af Amer) (> 60) BUN/Creatinine Ratio (6-26) Glucose (70-105) mg/dL Calculated Osmolality (280-300) Lactic Acid 1.4 (0.5-2.2) mmol/L Calcium (8.6-10.3) mg/dL Troponin I (< 0.04) ng/mL B-Natriuretic Peptide 15 (Less than 100) pg/mL Phenytoin (10.0-20.0) mcg/mL Attestation Statement - Attestation Attestation: I examined this patient and my medical decision-making was reviewed with the Resident Physician. I agree with the documented findings, disposition and treatment plan as described except to the extent set forth below. Patient presents to the ED with a chief complaint shortness of breath and productive cough. Patient has a history of COPD. Patient is tachypneic with accessory muscle use on examination. Lungs diffusely coarse. Plan. Cardiac workup nebs steroids and reevaluate. Patient was feeling better after nebs. Respiratory rate decreased. Patient was still dyspneic with ambulation. Patient was admitted to the hospitalist.
[2017-08-24 11:52] LABS: INR 1.1; Prothrombin Time 11.9 Seconds (9.4-12.1)
[2017-08-24] MEDS ORDERED: *HR* OxyCODONE/APAP 10/325 TABLET PO ONE (11:56)
[2017-08-24] MEDS ORDERED: OXcarbazepine 150 MG TABLET PO ONE (11:59)
[2017-08-24 12:02] LABS: BUN/Creatinine Ratio 23 (6-26); Blood Urea Nitrogen 9 mg/dL (6-20); Calcium 9.3 mg/dL (8.6-10.3); Carbon Dioxide 27 mEq/L (23-29); Chloride 97 mEq/L (98-107); Glucose 122 mg/dL (70-105); Osmolality,Calculated 272 (280-300); Potassium 3.7 mEq/L (3.5-5.1); Sodium 131 mEq/L (136-145); eGFR For African Americans > 60 (> 60); eGFR For Non-African Americans > 60 (> 60)
[2017-08-24 12:03] LABS: Troponin I < 0.03 ng/mL (< 0.04)
[2017-08-24 12:24] LABS: Phenytoin (Dilantin) 6.4 mcg/mL (10.0-20.0)
[2017-08-24 12:26] LABS: VBG HCO3 26 mEq/L (21-27); VBG PCO2 38 mmHg (41-51); VBG PH 7.44 pH Units (7.32-7.42); VBG PO2 184 mmHg (25-50)
[2017-08-24] MEDS ORDERED: diazePAM 10 MG TABLET PO ONE (14:49)
[2017-08-24] MEDS ORDERED: diazePAM 10 MG TABLET PO PRN (15:26)
[2017-08-24] MEDS ORDERED: NON-FORMULARY MEDICATION 1 EACH EACH (Alendronate Sodium [Fosamax] 70 MG) PO SCH (15:30)
[2017-08-24] MEDS ORDERED: Naloxone 0.4 MG/ML INJ IVP PRN (15:43)
[2017-08-24] MEDS ORDERED: Albuterol 2.5 MG/3 ML NEBULIZER IH PRN (15:54)
--- NOTE | 2017-08-24 16:12 | Internal Med History&Physical ---
Date of Encounter: 08/24/17 Time of Encounter: 15:37 Internal Medicine - H&P: HPI Chief complaint: COPD exacerbation Admitted From: Home Plans for Post Hospital Care: Home History of present illness: Ms. Allison is a 56 year old female who has history of COPD not on home O2, seizure presenting emergency room for productive cough shortness of breasts for few days. She has baseline shortness of breath, but over last few days she has been coughing was yellow sputum, SOB got worse. Today her home care nurse came to check her, she has bilateral diffuse wheezing, they pushed her [facility] and sending to emergency room. She also complains of bilateral chest pain when she coughs. The pain is 7 out of 10 sharp bilateral rib cage. She has a history of seizures, dilantin level was high on 07/28/2017, Dilantin dose was reduced she has been follow-up with her on neurrologist. Dilantin level was checked on 08/12 was 4.3, but today a Dilantin level is 6.4 she has no active seizures over last 2 months. We discussed to increase dose to her previous home dose. She was on 100 mg in the morning 100 mg at noon, and a 200 mg at bedtime, will follow-up Dilantin level tomorrow. Patient is going to be admitted for acute COPD exacerbation, hyponatremia. Past Med Surg Social Fam HX - Past Medical History Medical history: COPD, seizures, other Additional medical history: back pain, osteopenia, otalgia, joint pain, malaise , nausea, dyshypinia Psychiatric history: no psych history - Past Surgical History Surgical History: hysterectomy (tubal ligation), orthopedic, other (left knee surgery), other Additional surgical history: tubal ligation, d&c, left knee orif, breast tumor, liver bx - Social History Smoking Status: Current some day smoker Smokeless Tobacco Status: No Alcohol use: none Drug use: none - Family History Father Living Status: Hx Family Neurologic Disorders: Yes (Parkinson's) Mother Living Status: Still Living Hx Family Cancer: Yes (breast cancer) Internal Medicine - H&P: Meds Albuterol Sulfate [Proair Hfa] 2 puff IH Q4H PRN 11/17/15 [History] Alendronate Sodium [Fosamax] 70 mg PO QWEEK 11/17/15 [History] Ranitidine HCl [Heartburn Relief] 150 mg PO BID 11/17/15 [History] diazePAM [Valium] 10 mg PO TID 11/17/15 [History] Fluticasone/Vilanterol [Breo Ellipta 100-25 Mcg INH] 1 puff IH DAILY 07/24/17 [ History] OXcarbazepine [Oxcarbazepine] 300 mg PO QAM 08/24/17 [History] OXcarbazepine [Oxcarbazepine] 600 mg PO HS 08/24/17 [History] Oxycodone HCl/Acetaminophen [Percocet 5-325 mg Tablet] 1 tab PO Q6H PRN [History] Phenytoin ER [Dilantin ER] 100 mg PO QAM 08/24/17 [History] Phenytoin ER [Dilantin ER] 200 mg PO QPM 08/24/17 [History] 3 Allergy/AdvReac Type Severity Reaction Status Date / Time levofloxacin [From Levaquin] Allergy Hives Verified 07/24/17 20:11 All Systems PM: A 10-system review of systems was performed and is negative for pertinent findings except as documented above in the HPI. - Constitutional Vitals: Temp Pulse Resp BP Pulse Ox 97.9 F 101 22 128/92 97 08/24/17 10:46 08/24/17 14:31 08/24/17 14:31 08/24/17 14:31 08/24/17 14:31 General appearance: Present: cooperative, A&O X 3, answers questions appropriately Exam: CONSTITUTIONAL: Patient appears as an age appropriate female well developed, in no acute distress. EYES Clear sclerae, bilateral pupils are equal, reactive to light and accommodation. Extraocular movements are intact RESPIRATORY: No accessory muscle use, bilateral clear to auscultation, b/l wheezing, no crackles/rales. CARDIOVASCULAR: Regular heart rate, normal S1 and S2, no murmurs GASTROINTESTINAL: bowel sounds present, soft, no tenderness. No hepatosplenomegaly. No bilateral CVA tenderness MUSCULOSKELETAL: Joints in normal range of motion, no clubbing, no edema, no cyanosis. Bilateral peripheral pulses 2+ LYMPHATIC no lymphadenopathy in neck, groin and axilla bilaterally, no thyromegaly. NEUROLOGIC: CN II to XII are grossly intact, no focal neurological deficit. Deep tendon reflexes 2+ bilaterally. Normal light touch sensation to upper and lower extremity PSYCHIATRIC: Oriented x3, with good insight, mood is euthymic. No hallucinations or delusions. SKIN: Skin warm and dry, no rashes, no open wound. Internal Med - H&P Results - Labs CBC & Chem 7: 08/24/17 11:24 08/24/17 11:24 Labs: Short CBC 08/24/17 Range/Units 11:24 WBC 6.7 (4.3-11.1) K/mcL Hgb 13.8 (11.5-15.4) g/dL Hct 38.8 (35.3-44.9) % Plt Count 302 (140-400) K/mcL Neutrophils # 4.2 (1.6-8.9) K/mcL BMP 08/24/17 11:24 Sodium 131 L Potassium 3.7 Chloride 97 L Carbon Dioxide 27 BUN 9 Creatinine 0.39 L Glucose 122 H Calcium 9.3 Cardiac Enzymes 08/24/17 Range/Units 11:24 Troponin I < 0.03 (< 0.04) ng/mL - ABG Interpretation ABG results: 08/24/17 12:22 VBG pH 7.44 H VBG pCO2 38 L VBG pO2 184 H VBG HCO3 26 - Impressions ITS Impressions Chest X-Ray 08/24/17 10:51 IMPRESSION: 1. Stable chest x-ray with no active pulmonary disease. D/ / Alejo Arce MD / Alejo Arce MD Interpreting Provider: Alejo Arce MD - Assessment and plan (1) Acute exacerbation of chronic obstructive pulmonary disease (COPD) Current Visit: Yes Status: Acute Assessment and plan: Continue O2 nebulizer, add ceftriaxone, IV steroids She not on home O2, wearing oxygen. (2) Hyponatremia Current Visit: Yes Status: Acute Assessment and plan: We will give IV fluids follow up with a.m. check urine osmolality and sodium (3) Epilepsy Current Visit: Yes Status: Chronic Assessment and plan: History of traumatic brain injury, epilepsy on multiple medications low dilantin level, dose increased, follow up level am Last seizure was 2 months ago. Qualifiers: Epilepsy type: unspecified Intractability: not intractable Status epilepticus: without status epilepticus Qualified Code(s): G40.909 - Epilepsy , unspecified, not intractable, without status epilepticus (4) Tobacco abuse Current Visit: Yes Status: Chronic Assessment and plan: Quit smoking 5 months ago - Time Spent With Patient Total time spent is greater than 50% in coordination of care (as documented) at patient's floor/unit and/or counseling patient: Greater than 35 minutes
[2017-08-24] MEDS: Ringers Solution, Lactated 1,000 ML IVC SCH (16:51)
[2017-08-24] MEDS ORDERED: cefTRIAXone 1,000 MG in 0.9 % Sodium Chloride Mini Bag 100 ML IVPB SCH (17:00)
[2017-08-24] MEDS: Ipratropium/Albuterol Neb 3 ML IH SCH ×2 (17:26→22:52)
--- NOTE | 2017-08-24 18:24 | Electrocardiograph Report ---
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
[2017-08-24] MEDS: (Fluticasone/Vilanterol [Breo Ellipta 100-25 Mcg Inh] IH SCH (18:48)
[2017-08-24] MEDS: *HR* OxyCODONE/APAP 5/325 TABLET PO PRN (18:49)
[2017-08-24] MEDS: MethylPREDNISolone 40 MG/ML VIAL IVP SCH ×2 (18:49→23:15)
[2017-08-24] MEDS: OXcarbazepine 150 MG TABLET PO SCH (20:27)
[2017-08-24] MEDS: diazePAM 10 MG TABLET PO SCH (20:28)
[2017-08-24] MEDS: Famotidine 20 MG TABLET PO SCH (20:28)
[2017-08-24] MEDS: Azithromycin 500 MG in D5% in Water 250 ML IVPB SCH (23:15)
[2017-08-25] MEDS: *HR* OxyCODONE/APAP 5/325 TABLET PO PRN ×4 (01:04→22:12)
[2017-08-25] MEDS: Menthol 9.1 MG LOZENGE PO PRN ×2 (02:47→14:32)
[2017-08-25] MEDS: Ipratropium/Albuterol Neb 3 ML IH SCH ×6 (03:54→23:36)
[2017-08-25 07:20] LABS: Basophils % 0.2 %; Eosinophils % 0.2 %; Hematocrit 39.2 % (35.3-44.9); Hemoglobin 13.3 g/dL (11.5-15.4); Immature Granulocytes % 0.5 % (0-4); Lymphocytes # 2.4 K/mcL (0.6-4.6); Lymphocytes % 30.1 %; Mean Corpuscular HGB Conc 33.9 g/dL (31.6-35.5); Mean Corpuscular Hemoglobin 31.1 pg (28.0-33.3); Mean Corpuscular Volume 91.8 fL (83.0-100.0); Mean Platelet Volume 8.4 fL (9.4-12.4); Monocytes # 0.6 K/mcL (0.0-1.3); Monocytes % 7.8 %; Neutrophils # 4.9 K/mcL (1.6-8.9); Platelet Count 288 K/mcL (140-400); Red Blood Count 4.27 M/mcL (3.82-4.97); Red Cell Distribution Width 13.3 % (11.5-14.5); Segmented Neutrophils % 61.2 %
[2017-08-25] MEDS: Tiotropium 18 MCG inhalation IH SCH ×2 (07:28→09:42)
[2017-08-25 07:42] LABS: BUN/Creatinine Ratio 18 (6-26); Blood Urea Nitrogen 7 mg/dL (6-20); Calcium 8.7 mg/dL (8.6-10.3); Carbon Dioxide 22 mEq/L (23-29); Chloride 99 mEq/L (98-107); Glucose 115 mg/dL (70-105); Magnesium 1.9 mg/dL (1.6-2.6); Osmolality,Calculated 271 (280-300); Potassium 3.4 mEq/L (3.5-5.1); Sodium 131 mEq/L (136-145); eGFR For African Americans > 60 (> 60); eGFR For Non-African Americans > 60 (> 60)
[2017-08-25] MEDS: diazePAM 10 MG TABLET PO SCH ×3 (09:38→20:06)
[2017-08-25] MEDS: Famotidine 20 MG TABLET PO SCH ×2 (09:38→20:05)
[2017-08-25] MEDS: OXcarbazepine 150 MG TABLET PO SCH ×2 (09:38→20:05)
[2017-08-25] MEDS: (Fluticasone/Vilanterol [Breo Ellipta 100-25 Mcg Inh] IH SCH (09:39)
[2017-08-25] MEDS: Azithromycin 500 MG in D5% in Water 250 ML IVPB SCH ×2 (16:02→16:16)
[2017-08-25] MEDS: MethylPREDNISolone 40 MG/ML VIAL IVP SCH ×4 (16:02→23:22)
[2017-08-25] MEDS: Ringers Solution, Lactated 1,000 ML IVC SCH (16:03)
--- NOTE | 2017-08-25 18:38 | Internal Med Progress Note ---
Date of Encounter: 08/25/17 Time of Encounter: 13:00 - Assessment and plan (1) Acute exacerbation of chronic obstructive airways disease Current Visit: Yes Status: Acute Assessment and plan: Continues to have wheezes continue with IV steroids and O2 titrating she does not wear oxygen at home and continue with Rocephin. (2) Hyponatremia Current Visit: Yes Status: Acute Assessment and plan: 1 we will check urine sodium /osmolality-give IV fluids Continue to monitor (3) Epilepsy Current Visit: Yes Status: Chronic Assessment and plan: Continue to monitor Dilantin level-this improving -albumin is 4 continue to monitor Seizure precautions Qualifiers: Epilepsy type: unspecified Intractability: not intractable Status epilepticus: without status epilepticus Qualified Code(s): G40.909 - Epilepsy , unspecified, not intractable, without status epilepticus (4) Tobacco abuse Current Visit: Yes Status: Chronic Assessment and plan: Encouraged patient not to smoke-nicotine patch as needed - Time Spent With Patient Total time spent is greater than 50% in coordination of care (as documented) at patient's floor/unit and/or counseling patient: - Subjective Interval history: Patient was examined at bedside. Patient continues to complain of shortness of breath particularly on exertion continues to have yellow sputum production. Denies any fevers. - Constitutional Vitals: Temp Pulse Resp BP Pulse Ox 97.9 F 93 17 108/67 97 08/25/17 16:03 08/25/17 16:03 08/25/17 16:03 08/25/17 16:03 08/25/17 16:03 General appearance: Present: cooperative, A&O X 3, answers questions appropriately - Head Head exam: Present: atraumatic, normocephalic - Eye Eye exam: Present: PERRL, conjuntiva pink, sclera anicteric Pupils: Present: PERRL - Neck Neck exam general surgery: Present: supple, trachea midline. Absent: lymphadenopathy - Respiratory Respiratory exam: Present: wheezes. Absent: accessory muscle use, rales, rhonchi - Cardiovascular Cardiovascular exam: Present: RRR, +S1, +S2. Absent: diastolic murmur, gallop, rubs, systolic murmur - GI/Abdominal GI/Abdominal exam: Present: normal bowel sounds, soft, no peritoneal signs. Absent: distended, tenderness - Extremities Exam Extremities exam: Present: warm, radial pulses palpable and symmetrical. Absent : calf tenderness, cyanotic, pedal edema - Neurological Exam Neurological exam: Present: CN II-XII intact, oriented X3, no focal deficits. Absent: pronater drift, facial droop, speech deficit - Skin Skin exam: Present: dry, intact Internal Medicine: Result - Labs CBC & Chem 7: 08/25/17 07:07 08/25/17 07:07 Labs: Short CBC 08/25/17 Range/Units 07:07 WBC 8.0 (4.3-11.1) K/mcL Hgb 13.3 (11.5-15.4) g/dL Hct 39.2 (35.3-44.9) % Plt Count 288 (140-400) K/mcL Neutrophils # 4.9 (1.6-8.9) K/mcL BMP 08/25/17 07:07 Sodium 131 L Potassium 3.4 L Chloride 99 Carbon Dioxide 22 L BUN 7 Creatinine 0.38 L Glucose 115 H Calcium 8.7 Liver Function 08/25/17 Range/Units 10:29 Albumin 4.0 (3.5-5.7) g/dL - ABG Interpretation ABG results: PT/INR, D-dimer PT 11.9 Seconds (9.4-12.1) 08/24/17 11:24 Consult Discharge Plan - Plan Referrals: Les Martines DO [Primary Care Provider] - 09/26/17 11:15 am
[2017-08-25] MEDS ORDERED: 0.9 % Sodium Chloride 1,000 ML IVC SCH (19:00)
[2017-08-26] MEDS: Ipratropium/Albuterol Neb 3 ML IH SCH ×6 (04:43→23:53)
[2017-08-26] MEDS: *HR* OxyCODONE/APAP 5/325 TABLET PO PRN ×3 (05:18→18:03)
[2017-08-26] MEDS: MethylPREDNISolone 40 MG/ML VIAL IVP SCH ×3 (05:18→18:04)
[2017-08-26 06:44] LABS: Basophils % 0.2 %; Hematocrit 35.1 % (35.3-44.9); Hemoglobin 11.9 g/dL (11.5-15.4); Immature Granulocytes % 0.6 % (0-4); Lymphocytes # 1.7 K/mcL (0.6-4.6); Lymphocytes % 20.6 %; Mean Corpuscular HGB Conc 33.9 g/dL (31.6-35.5); Mean Corpuscular Hemoglobin 31.1 pg (28.0-33.3); Mean Corpuscular Volume 91.6 fL (83.0-100.0); Mean Platelet Volume 8.4 fL (9.4-12.4); Monocytes # 0.3 K/mcL (0.0-1.3); Monocytes % 3.2 %; Neutrophils # 6.1 K/mcL (1.6-8.9); Platelet Count 286 K/mcL (140-400); Red Blood Count 3.83 M/mcL (3.82-4.97); Red Cell Distribution Width 13.4 % (11.5-14.5); Segmented Neutrophils % 75.4 %
[2017-08-26 07:04] LABS: BUN/Creatinine Ratio 16 (6-26); Blood Urea Nitrogen 7 mg/dL (6-20); Calcium 8.6 mg/dL (8.6-10.3); Carbon Dioxide 23 mEq/L (23-29); Chloride 98 mEq/L (98-107); Glucose 201 mg/dL (70-105); Osmolality,Calculated 270 (280-300); Potassium 4.1 mEq/L (3.5-5.1); Sodium 128 mEq/L (136-145); eGFR For African Americans > 60 (> 60); eGFR For Non-African Americans > 60 (> 60)
[2017-08-26] MEDS: Tiotropium 18 MCG inhalation IH SCH (07:38)
[2017-08-26 09:26] LABS: Thyroid Stimulating Hormone 0.327 mcIU/mL (0.340-5.600)
[2017-08-26] MEDS: (Fluticasone/Vilanterol [Breo Ellipta 100-25 Mcg Inh] IH SCH (09:28)
[2017-08-26] MEDS: diazePAM 10 MG TABLET PO SCH ×3 (09:29→21:34)
[2017-08-26] MEDS: OXcarbazepine 150 MG TABLET PO SCH ×2 (09:29→21:35)
[2017-08-26] MEDS: Famotidine 20 MG TABLET PO SCH ×2 (09:29→21:34)
--- NOTE | 2017-08-26 10:33 | Internal Med Progress Note ---
Date of Encounter: 08/26/17 Time of Encounter: 10:27 - Assessment and plan (1) Acute exacerbation of chronic obstructive airways disease Current Visit: Yes Status: Acute Assessment and plan: Continues to have wheezes -patient had a episode of coughing and began to wheeze and have difficulty catching her breath this a.m. Sats were stable she was given a breathing treatment and return back to baseline continue with IV steroids and O2 titrating she does not wear oxygen at home continue with Rocephin. 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 we will place on fluid restriction and continue to monitor We will check TSH (3) Epilepsy Current Visit: Yes Status: Chronic Assessment and plan: Continue to monitor Dilantin level-this improving -albumin is 4 continue to monitor Seizure precautions Qualifiers: Epilepsy type: unspecified Intractability: not intractable Status epilepticus: without status epilepticus Qualified Code(s): G40.909 - Epilepsy , unspecified, not intractable, without status epilepticus (4) Tobacco abuse Current Visit: Yes Status: Chronic Assessment and plan: Encouraged patient not to smoke-nicotine patch as needed - Time Spent With Patient Total time spent is greater than 50% in coordination of care (as documented) at patient's floor/unit and/or counseling patient: - Subjective Interval history: Patient was examined at bedside. She was having difficulty breathing/ coughing Sats stable audible wheezes. Given Breathing tx improved. - Constitutional Vitals: Temp Pulse Resp BP Pulse Ox 97.9 F 79 16 121/79 98 08/26/17 06:42 08/26/17 06:42 08/26/17 07:37 08/26/17 06:42 08/26/17 07:37 General appearance: Present: cooperative, A&O X 3, answers questions appropriately - Head Head exam: Present: atraumatic, normocephalic - Eye Eye exam: Present: PERRL, conjuntiva pink, sclera anicteric Pupils: Present: PERRL - Neck Neck exam general surgery: Present: supple, trachea midline. Absent: lymphadenopathy - Respiratory Respiratory exam: Present: respiratory distress, wheezes. Absent: accessory muscle use, rales, rhonchi - Cardiovascular Cardiovascular exam: Present: RRR, +S1, +S2. Absent: diastolic murmur, gallop, rubs, systolic murmur - GI/Abdominal GI/Abdominal exam: Present: normal bowel sounds, soft, no peritoneal signs. Absent: distended, tenderness - Extremities Exam Extremities exam: Present: warm, radial pulses palpable and symmetrical. Absent : calf tenderness, cyanotic, pedal edema - Neurological Exam Neurological exam: Present: CN II-XII intact, oriented X3, no focal deficits. Absent: pronater drift, facial droop, speech deficit - Skin Skin exam: Present: dry, intact Internal Medicine: Result - Labs CBC & Chem 7: 08/26/17 06:25 08/26/17 14:40 Labs: Short CBC 08/26/17 Range/Units 06:25 WBC 8.1 (4.3-11.1) K/mcL Hgb 11.9 (11.5-15.4) g/dL Hct 35.1 L (35.3-44.9) % Plt Count 286 (140-400) K/mcL Neutrophils # 6.1 (1.6-8.9) K/mcL BMP 08/26/17 06:25 Sodium 128 L Potassium 4.1 Chloride 98 Carbon Dioxide 23 BUN 7 Creatinine 0.43 L Glucose 201 H Calcium 8.6 Liver Function 08/25/17 Range/Units 10:29 Albumin 4.0 (3.5-5.7) g/dL - ABG Interpretation ABG results: PT/INR, D-dimer PT 11.9 Seconds (9.4-12.1) 08/24/17 11:24 Consult Discharge Plan - Plan Referrals: Les Martines DO [Primary Care Provider] - 09/26/17 11:15 am
[2017-08-26] MEDS: Menthol 9.1 MG LOZENGE PO PRN (14:14)
[2017-08-26 15:19] LABS: BUN/Creatinine Ratio 15 (6-26); Blood Urea Nitrogen 7 mg/dL (6-20); Calcium 8.7 mg/dL (8.6-10.3); Carbon Dioxide 24 mEq/L (23-29); Chloride 99 mEq/L (98-107); Glucose 175 mg/dL (70-105); Osmolality,Calculated 274 (280-300); Sodium 131 mEq/L (136-145); eGFR For African Americans > 60 (> 60); eGFR For Non-African Americans > 60 (> 60)
[2017-08-26] MEDS: Azithromycin 500 MG in D5% in Water 250 ML IVPB SCH (15:47)
[2017-08-27] MEDS: *HR* OxyCODONE/APAP 5/325 TABLET PO PRN ×4 (00:48→22:13)
[2017-08-27] MEDS: MethylPREDNISolone 40 MG/ML VIAL IVP SCH ×2 (00:49→05:52)
[2017-08-27] MEDS ORDERED: Acetaminophen 325 MG TABLET PO PRN (02:24)
[2017-08-27] MEDS: Ipratropium/Albuterol Neb 3 ML IH SCH ×5 (03:19→19:45)
[2017-08-27] MEDS ORDERED: *HR* OxyCODONE/APAP 5/325 TABLET PO ONE (03:38)
[2017-08-27 04:57] LABS: Basophils % 0.3 %; Hematocrit 38.2 % (35.3-44.9); Hemoglobin 12.9 g/dL (11.5-15.4); Lymphocytes # 1.6 K/mcL (0.6-4.6); Lymphocytes % 17.5 %; Mean Corpuscular HGB Conc 33.8 g/dL (31.6-35.5); Mean Corpuscular Hemoglobin 31.2 pg (28.0-33.3); Mean Corpuscular Volume 92.5 fL (83.0-100.0); Mean Platelet Volume 8.2 fL (9.4-12.4); Monocytes # 0.3 K/mcL (0.0-1.3); Monocytes % 2.9 %; Neutrophils # 7.1 K/mcL (1.6-8.9); Platelet Count 320 K/mcL (140-400); Red Blood Count 4.13 M/mcL (3.82-4.97); Red Cell Distribution Width 13.6 % (11.5-14.5); Segmented Neutrophils % 78.3 %
[2017-08-27 05:18] LABS: BUN/Creatinine Ratio 18 (6-26); Blood Urea Nitrogen 7 mg/dL (6-20); Calcium 8.9 mg/dL (8.6-10.3); Carbon Dioxide 25 mEq/L (23-29); Chloride 98 mEq/L (98-107); Glucose 127 mg/dL (70-105); Osmolality,Calculated 274 (280-300); Sodium 132 mEq/L (136-145); eGFR For African Americans > 60 (> 60); eGFR For Non-African Americans > 60 (> 60)
[2017-08-27 05:34] LABS: Triiodothyronine (T3) Free 3.28 pg/mL (2.50-3.90)
[2017-08-27] MEDS: Tiotropium 18 MCG inhalation IH SCH (07:49)
--- NOTE | 2017-08-27 08:20 | Internal Med Progress Note ---
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- improving- we will place on fluid restriction and continue to monitor TSH- low (3) Epilepsy Current Visit: Yes Status: Chronic Assessment and plan: Continue to monitor Dilantin level-within range- No seizure activity -albumin is 4 continue to monitor Seizure precautions Qualifiers: Epilepsy type: unspecified Intractability: not intractable Status epilepticus: without status epilepticus Qualified Code(s): G40.909 - Epilepsy , unspecified, not intractable, without status epilepticus (4) Tobacco abuse Current Visit: Yes Status: Chronic Assessment and plan: Encouraged patient not to smoke-nicotine patch as needed - Time Spent With Patient Total time spent is greater than 50% in coordination of care (as documented) at patient's floor/unit and/or counseling patient: - Subjective Interval history: Patient was examined at bedside. She cont to have difficulty breathing and requires 3l supplemental O2. She has audible wheezes and complains of SOB. I will added Symbicort inhaler, increase steroids, I reveiwed treatment plan with patient who agree with plan - Constitutional Vitals: Temp Pulse Resp BP Pulse Ox 98.1 F 90 16 132/77 95 08/27/17 06:57 08/27/17 06:57 08/27/17 07:48 08/27/17 06:57 08/27/17 07:48 General appearance: Present: cooperative, A&O X 3, answers questions appropriately - Head Head exam: Present: atraumatic, normocephalic - Eye Eye exam: Present: PERRL, conjuntiva pink, sclera anicteric Pupils: Present: PERRL - Neck Neck exam general surgery: Present: supple, trachea midline. Absent: lymphadenopathy - Respiratory Respiratory exam: Present: respiratory distress, wheezes. Absent: accessory muscle use, rales, rhonchi - Cardiovascular Cardiovascular exam: Present: RRR, +S1, +S2. Absent: diastolic murmur, gallop, rubs, systolic murmur - GI/Abdominal GI/Abdominal exam: Present: normal bowel sounds, soft, no peritoneal signs. Absent: distended, tenderness - Extremities Exam Extremities exam: Present: warm, radial pulses palpable and symmetrical. Absent : calf tenderness, cyanotic, pedal edema - Neurological Exam Neurological exam: Present: CN II-XII intact, oriented X3, no focal deficits. Absent: pronater drift, facial droop, speech deficit - Skin Skin exam: Present: dry, intact Internal Medicine: Result - Labs CBC & Chem 7: 08/27/17 04:30 08/27/17 04:30 Labs: Short CBC 08/27/17 Range/Units 04:30 WBC 9.1 (4.3-11.1) K/mcL Hgb 12.9 (11.5-15.4) g/dL Hct 38.2 (35.3-44.9) % Plt Count 320 (140-400) K/mcL Neutrophils # 7.1 (1.6-8.9) K/mcL BMP 08/26/17 08/26/17 08/27/17 06:25 14:40 04:30 Sodium 128 L 131 L 132 L Potassium 4.1 4.0 4.0 Chloride 98 99 98 Carbon Dioxide 23 24 25 BUN 7 7 7 Creatinine 0.43 L 0.47 L 0.40 L Glucose 201 H 175 H 127 H Calcium 8.6 8.7 8.9 - ABG Interpretation ABG results: PT/INR, D-dimer PT 11.9 Seconds (9.4-12.1) 08/24/17 11:24 Consult Discharge Plan - Plan Referrals: Les Martines DO [Primary Care Provider] - 09/26/17 11:15 am
[2017-08-27] MEDS: (Fluticasone/Vilanterol [Breo Ellipta 100-25 Mcg Inh] IH SCH (08:50)
[2017-08-27] MEDS: OXcarbazepine 150 MG TABLET PO SCH ×2 (08:55→21:38)
[2017-08-27] MEDS: Famotidine 20 MG TABLET PO SCH ×2 (08:55→21:37)
[2017-08-27] MEDS: diazePAM 10 MG TABLET PO SCH ×3 (08:56→21:37)
[2017-08-27] MEDS: Budesonide/Formoterol 80/4.5 MDI IH SCH ×2 (11:31→19:45)
[2017-08-27] MEDS: methylPREDNISolone 125 MG/2 ML VIAL IM SCH ×3 (11:34→23:24)
[2017-08-27] MEDS: Azithromycin 500 MG in D5% in Water 250 ML IVPB SCH (15:47)
[2017-08-27 22:45] LABS: Phenytoin (Dilantin) Free 1.4 ug/mL (1.0-2.5); Phenytoin Dose NOT PROVIDED; Phenytoin Dose Frequency NOT PROVIDED; Phenytoin Route NOT PROVIDED
[2017-08-28] MEDS: Ipratropium/Albuterol Neb 3 ML IH SCH ×7 (00:41→23:46)
[2017-08-28] MEDS: *HR* OxyCODONE/APAP 5/325 TABLET PO PRN ×4 (04:36→23:01)
[2017-08-28] MEDS: methylPREDNISolone 125 MG/2 ML VIAL IM SCH ×2 (06:21→10:41)
[2017-08-28 06:45] LABS: Basophils % 0.2 %; Eosinophils % 0.1 %; Hematocrit 41.6 % (35.3-44.9); Hemoglobin 13.9 g/dL (11.5-15.4); Immature Granulocytes % 1.1 % (0-4); Lymphocytes # 2.3 K/mcL (0.6-4.6); Lymphocytes % 21.3 %; Mean Corpuscular HGB Conc 33.4 g/dL (31.6-35.5); Mean Corpuscular Hemoglobin 30.9 pg (28.0-33.3); Mean Corpuscular Volume 92.4 fL (83.0-100.0); Mean Platelet Volume 8.1 fL (9.4-12.4); Monocytes # 0.8 K/mcL (0.0-1.3); Monocytes % 7.1 %; Neutrophils # 7.5 K/mcL (1.6-8.9); Platelet Count 326 K/mcL (140-400); Red Cell Distribution Width 13.4 % (11.5-14.5); Segmented Neutrophils % 70.2 %
[2017-08-28 07:08] LABS: BUN/Creatinine Ratio 26 (6-26); Blood Urea Nitrogen 9 mg/dL (6-20); Carbon Dioxide 26 mEq/L (23-29); Chloride 95 mEq/L (98-107); Glucose 113 mg/dL (70-105); Osmolality,Calculated 263 (280-300); Potassium 4.6 mEq/L (3.5-5.1); Sodium 127 mEq/L (136-145); eGFR For African Americans > 60 (> 60); eGFR For Non-African Americans > 60 (> 60)
[2017-08-28] MEDS: (Fluticasone/Vilanterol [Breo Ellipta 100-25 Mcg Inh] IH SCH (08:17)
[2017-08-28] MEDS: Famotidine 20 MG TABLET PO SCH ×2 (08:21→20:27)
[2017-08-28] MEDS: OXcarbazepine 150 MG TABLET PO SCH ×2 (08:21→20:27)
[2017-08-28] MEDS: diazePAM 10 MG TABLET PO SCH ×3 (08:21→20:27)
[2017-08-28] MEDS: Budesonide/Formoterol 80/4.5 MDI IH SCH ×2 (08:41→19:54)
[2017-08-28] MEDS: Tiotropium 18 MCG inhalation IH SCH (08:42)
--- NOTE | 2017-08-28 09:34 | Internal Med Progress Note ---
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- improving- fluid restriction TSH- low (3) Epilepsy Current Visit: Yes Status: Chronic Assessment and plan: Continue to monitor Dilantin level-within range- No seizure activity -albumin is 4 continue to monitor Seizure precautions Qualifiers: Epilepsy type: unspecified Intractability: not intractable Status epilepticus: without status epilepticus Qualified Code(s): G40.909 - Epilepsy , unspecified, not intractable, without status epilepticus (4) Tobacco abuse Current Visit: Yes Status: Chronic Assessment and plan: Encouraged patient not to smoke-nicotine patch as needed - Time Spent With Patient Total time spent is greater than 50% in coordination of care (as documented) at patient's floor/unit and/or counseling patient: - Subjective Interval history: Patient was examined at bedside. Breathing much improved, no wheezes today. On 3 L nc sats stable. She states she feels better, cont with cough but improving. Reviewed treatment plan verbalizes understanding - Constitutional Vitals: Temp Pulse Resp BP Pulse Ox 97.9 F 83 18 123/72 97 08/28/17 07:11 08/28/17 07:11 08/28/17 08:42 08/28/17 07:11 08/28/17 08:42 General appearance: Present: cooperative, A&O X 3, answers questions appropriately - Head Head exam: Present: atraumatic, normocephalic - Eye Eye exam: Present: PERRL, conjuntiva pink, sclera anicteric Pupils: Present: PERRL - Neck Neck exam general surgery: Present: supple, trachea midline. Absent: lymphadenopathy - Respiratory Respiratory exam: Present: CTAB. Absent: accessory muscle use, rales, rhonchi, wheezes - Cardiovascular Cardiovascular exam: Present: RRR, +S1, +S2. Absent: diastolic murmur, gallop, rubs, systolic murmur - GI/Abdominal GI/Abdominal exam: Present: normal bowel sounds, soft, no peritoneal signs. Absent: distended, tenderness - Extremities Exam Extremities exam: Present: warm, radial pulses palpable and symmetrical. Absent : calf tenderness, cyanotic, pedal edema - Neurological Exam Neurological exam: Present: CN II-XII intact, oriented X3, no focal deficits. Absent: pronater drift, facial droop, speech deficit - Skin Skin exam: Present: dry, intact Internal Medicine: Result - Labs CBC & Chem 7: 08/28/17 06:17 08/28/17 06:17 Labs: Short CBC 08/28/17 Range/Units 06:17 WBC 10.7 (4.3-11.1) K/mcL Hgb 13.9 (11.5-15.4) g/dL Hct 41.6 (35.3-44.9) % Plt Count 326 (140-400) K/mcL Neutrophils # 7.5 (1.6-8.9) K/mcL BMP 08/28/17 06:17 Sodium 127 L Potassium 4.6 Chloride 95 L Carbon Dioxide 26 BUN 9 Creatinine 0.35 L Glucose 113 H Calcium 9.0 - ABG Interpretation ABG results: PT/INR, D-dimer PT 11.9 Seconds (9.4-12.1) 08/24/17 11:24 Consult Discharge Plan - Plan Referrals: Les Martines DO [Primary Care Provider] - 09/26/17 11:15 am
[2017-08-28] MEDS ORDERED: Furosemide 20 MG/2 ML VIAL IVP ONE (12:03)
[2017-08-28] MEDS ORDERED: methylPREDNISolone 125 MG/2 ML VIAL IVP SCH (12:03)
[2017-08-28 13:44] LABS: Phenytoin Percent Free 15.2 % (8.0-14.0); Phenytoin Type of Draw NOT PROVIDED
[2017-08-28] MEDS: Azithromycin 500 MG in D5% in Water 250 ML IVPB SCH (15:59)
[2017-08-28] MEDS: MethylPREDNISolone 40 MG/ML VIAL IVP SCH (17:07)
[2017-08-29] MEDS: MethylPREDNISolone 40 MG/ML VIAL IVP SCH ×2 (00:35→05:50)
[2017-08-29] MEDS: Ipratropium/Albuterol Neb 3 ML IH SCH ×6 (03:39→23:14)
[2017-08-29] MEDS: *HR* OxyCODONE/APAP 5/325 TABLET PO PRN ×3 (05:50→17:41)
[2017-08-29] MEDS: Budesonide/Formoterol 80/4.5 MDI IH SCH ×2 (07:27→19:20)
[2017-08-29] MEDS: Tiotropium 18 MCG inhalation IH SCH (07:29)
[2017-08-29] MEDS: diazePAM 10 MG TABLET PO SCH ×3 (08:38→22:07)
[2017-08-29] MEDS: OXcarbazepine 150 MG TABLET PO SCH ×2 (08:38→22:08)
[2017-08-29] MEDS: (Fluticasone/Vilanterol [Breo Ellipta 100-25 Mcg Inh] IH SCH (08:38)
[2017-08-29] MEDS: Famotidine 20 MG TABLET PO SCH ×2 (08:38→22:07)
[2017-08-29 09:38] LABS: Basophils % 0.1 %; Hemoglobin 14.9 g/dL (11.5-15.4); Immature Granulocytes % 1.3 % (0-4); Lymphocytes # 1.6 K/mcL (0.6-4.6); Lymphocytes % 14.5 %; Mean Corpuscular HGB Conc 33.9 g/dL (31.6-35.5); Mean Corpuscular Volume 91.7 fL (83.0-100.0); Mean Platelet Volume 8.3 fL (9.4-12.4); Monocytes # 0.3 K/mcL (0.0-1.3); Monocytes % 2.7 %; Neutrophils # 8.9 K/mcL (1.6-8.9); Platelet Count 308 K/mcL (140-400); Red Cell Distribution Width 13.3 % (11.5-14.5); Segmented Neutrophils % 81.4 %
[2017-08-29 10:00] LABS: BUN/Creatinine Ratio 21 (6-26); Blood Urea Nitrogen 9 mg/dL (6-20); Calcium 9.3 mg/dL (8.6-10.3); Carbon Dioxide 27 mEq/L (23-29); Chloride 89 mEq/L (98-107); Glucose 158 mg/dL (70-105); Osmolality,Calculated 264 (280-300); Potassium 4.1 mEq/L (3.5-5.1); Sodium 126 mEq/L (136-145); eGFR For African Americans > 60 (> 60); eGFR For Non-African Americans > 60 (> 60)
--- NOTE | 2017-08-29 10:57 | Internal Med Progress Note ---
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 I will give Salt Tabs and continue to monitor sodium Continue to monitor intake and output Fluid restriction T (3) Epilepsy Current Visit: Yes Status: Chronic Assessment and plan: Continue to monitor Dilantin level-within range- No seizure activity -albumin is 4 continue to monitor Seizure precautions Qualifiers: Epilepsy type: unspecified Intractability: not intractable Status epilepticus: without status epilepticus Qualified Code(s): G40.909 - Epilepsy , unspecified, not intractable, without status epilepticus (4) Tobacco abuse Current Visit: Yes Status: Chronic - Time Spent With Patient Total time spent is greater than 50% in coordination of care (as documented) at patient's floor/unit and/or counseling patient: - Subjective Interval history: Patient was examined at bedside. Breathing much improved, no wheezes today. On 3 L nc sats stable. She will undergo 6 minute walk today for O2 qualification. She continues to be hyponatremic I did speak with her concerning today's treatment plan. She became teary-eyed requesting to go home. Advised her to stay since she is still hyponatremic. She agrees to treatment plan. - Constitutional Vitals: Temp Pulse Resp BP Pulse Ox 97.9 F 87 16 122/81 93 08/29/17 07:23 08/29/17 07:23 08/29/17 07:31 08/29/17 07:23 08/29/17 08:48 General appearance: Present: cooperative, A&O X 3, answers questions appropriately - Head Head exam: Present: atraumatic, normocephalic - Eye Eye exam: Present: PERRL, conjuntiva pink, sclera anicteric Pupils: Present: PERRL - Neck Neck exam general surgery: Present: supple, trachea midline. Absent: lymphadenopathy - Respiratory Respiratory exam: Present: CTAB. Absent: accessory muscle use, rales, rhonchi, wheezes - Cardiovascular Cardiovascular exam: Present: RRR, +S1, +S2. Absent: diastolic murmur, gallop, rubs, systolic murmur - GI/Abdominal GI/Abdominal exam: Present: normal bowel sounds, soft, no peritoneal signs. Absent: distended, tenderness - Extremities Exam Extremities exam: Present: warm, radial pulses palpable and symmetrical. Absent : calf tenderness, cyanotic, pedal edema - Neurological Exam Neurological exam: Present: CN II-XII intact, oriented X3, no focal deficits. Absent: pronater drift, facial droop, speech deficit - Skin Skin exam: Present: dry, intact Internal Medicine: Result - Labs CBC & Chem 7: 08/29/17 08:59 08/29/17 15:01 Labs: Short CBC 08/29/17 Range/Units 08:59 WBC 10.9 (4.3-11.1) K/mcL Hgb 14.9 (11.5-15.4) g/dL Hct 44.0 (35.3-44.9) % Plt Count 308 (140-400) K/mcL Neutrophils # 8.9 (1.6-8.9) K/mcL BMP 08/29/17 08:59 Sodium 126 L Potassium 4.1 Chloride 89 L Carbon Dioxide 27 BUN 9 Creatinine 0.43 L Glucose 158 H Calcium 9.3 - ABG Interpretation ABG results: PT/INR, D-dimer PT 11.9 Seconds (9.4-12.1) 08/24/17 11:24 Consult Discharge Plan - Plan Referrals: Les Martines DO [Primary Care Provider] - 09/26/17 11:15 am
[2017-08-29 15:55] LABS: BUN/Creatinine Ratio 26 (6-26); Blood Urea Nitrogen 11 mg/dL (6-20); Calcium 8.8 mg/dL (8.6-10.3); Carbon Dioxide 26 mEq/L (23-29); Chloride 93 mEq/L (98-107); Glucose 125 mg/dL (70-105); Osmolality,Calculated 267 (280-300); Potassium 3.8 mEq/L (3.5-5.1); Sodium 128 mEq/L (136-145); eGFR For African Americans > 60 (> 60); eGFR For Non-African Americans > 60 (> 60)
[2017-08-29] MEDS: Azithromycin 500 MG in D5% in Water 250 ML IVPB SCH (17:45)
[2017-08-29] MEDS ORDERED: MethylPREDNISolone 40 MG/ML VIAL IVP SCH (18:00)
[2017-08-30] MEDS: *HR* OxyCODONE/APAP 5/325 TABLET PO PRN ×3 (00:02→12:19)
[2017-08-30] MEDS: Ipratropium/Albuterol Neb 3 ML IH SCH ×3 (03:53→11:06)
[2017-08-30 06:54] LABS: Basophils % 0.2 %; Eosinophils % 0.1 %; Hemoglobin 14.3 g/dL (11.5-15.4); Immature Granulocytes % 0.6 % (0-4); Lymphocytes # 4.5 K/mcL (0.6-4.6); Mean Corpuscular Hemoglobin 31.4 pg (28.0-33.3); Mean Corpuscular Volume 92.3 fL (83.0-100.0); Mean Platelet Volume 8.1 fL (9.4-12.4); Monocytes # 1.2 K/mcL (0.0-1.3); Monocytes % 7.1 %; Neutrophils # 10.4 K/mcL (1.6-8.9); Platelet Count 322 K/mcL (140-400); Red Blood Count 4.55 M/mcL (3.82-4.97); Red Cell Distribution Width 13.6 % (11.5-14.5)
[2017-08-30 07:16] LABS: BUN/Creatinine Ratio 30 (6-26); Blood Urea Nitrogen 11 mg/dL (6-20); Calcium 8.7 mg/dL (8.6-10.3); Carbon Dioxide 25 mEq/L (23-29); Chloride 94 mEq/L (98-107); Glucose 100 mg/dL (70-105); Osmolality,Calculated 271 (280-300); Potassium 3.6 mEq/L (3.5-5.1); Sodium 131 mEq/L (136-145); eGFR For African Americans > 60 (> 60); eGFR For Non-African Americans > 60 (> 60)
[2017-08-30] MEDS: Tiotropium 18 MCG inhalation IH SCH (07:25)
[2017-08-30] MEDS: Budesonide/Formoterol 80/4.5 MDI IH SCH (07:26)
[2017-08-30] MEDS: diazePAM 10 MG TABLET PO SCH (08:40)
[2017-08-30] MEDS: Famotidine 20 MG TABLET PO SCH (08:40)
[2017-08-30] MEDS: OXcarbazepine 150 MG TABLET PO SCH (08:40)
[2017-08-30] MEDS ORDERED: predniSONE 20 MG TABLET PO SCH (09:00)
[2017-08-30] MEDS: (Fluticasone/Vilanterol [Breo Ellipta 100-25 Mcg Inh] IH SCH (10:26)
[2017-08-30 11:22] VITALS: BP 112/74
--- NOTE | 2017-08-30 12:20 | Discharge Summary ---
- NOTES TO OUTPATIENT PROVIDER Notes to Outpatient Provider: Admitted for acute exacerbation of COPD. Received bronchodilators, and steroids. Uneventful hospital course. Discharged home in stable condition. Encouraged to follow-up with PCP within 1 week of discharge. Qualified for home O2 prior to discharge due to hypoxia with ambulation. Also of note, found to be hyponatremic, etiology unclear. Asymptomatic. Improving at discharge. Please follow sodium. Date of Encounter: 08/30/17 Time of Encounter: 12:17 - Discharge Diagnosis (1) Acute exacerbation of chronic obstructive airways disease Priority: Primary Status: Acute Assessment and Plan: Admitted with cough, dyspnea, wheezing Treated for an acute exacerbation of COPD Overall, uneventful hospital course Respiratory status continuing to improve, does not appear to be in respiratory distress Remains on nasal cannula, qualified for home O2 as she is hypoxic with ambulation Lungs are diminished with fine expiratory wheezes Underwent a 6 minute walk today for requalification for home O2 We will be sent home with a prescription for home oxygen Resume rescue inhaler and bronchodilators at discharge She has been encouraged to follow-up with her PCP within 1 week of discharge. Additionally, she has been informed she should return to the ED showed shortness of breath persist or worsen. Denies any further questions and verbalizes understanding. (2) Epilepsy Priority: Secondary Status: Chronic Assessment and Plan: No seizures during this admission, continue Dilantin at discharge. Dilantin levels were within normal limits Qualifiers: Epilepsy type: unspecified Intractability: not intractable Status epilepticus: without status epilepticus Qualified Code(s): G40.909 - Epilepsy , unspecified, not intractable, without status epilepticus (3) Tobacco abuse Priority: Secondary Status: Chronic Assessment and Plan: Discussed the need for tobacco cessation, declined (4) Hyponatremia Priority: Secondary Status: Acute Assessment and Plan: Continuing to improve Likely due to SIADH Hospital course: Ms. Allison is a 56 year old female Please see assessment and plan for hospital course Discharge discussed with: patient, family, nurse - Time Spent with Patient Total time spent providing and/or coordinating discharge services: Less than 30 minutes - Discharge Medications Home Medications: Albuterol Sulfate [Proair Hfa] 2 puff IH Q4H PRN 11/17/15 [History] Alendronate Sodium [Fosamax] 70 mg PO QWEEK 11/17/15 [History] Ranitidine HCl [Heartburn Relief] 150 mg PO BID 11/17/15 [History] diazePAM [Valium] 10 mg PO TID 11/17/15 [History] Fluticasone/Vilanterol [Breo Ellipta 100-25 Mcg INH] 1 puff IH DAILY 07/24/17 [ History] OXcarbazepine [Oxcarbazepine] 300 mg PO QAM 08/24/17 [History] OXcarbazepine [Oxcarbazepine] 600 mg PO HS 08/24/17 [History] Oxycodone HCl/Acetaminophen [Percocet 5-325 mg Tablet] 1 tab PO Q6H PRN [History] Phenytoin ER [Dilantin ER] 100 mg PO QAM 08/24/17 [History] Phenytoin ER [Dilantin ER] 200 mg PO QPM 08/24/17 [History] Allergies/Adverse Reactions: 3 Allergy/AdvReac Type Severity Reaction Status Date / Time levofloxacin [From Levaquin] Allergy Hives Verified 07/24/17 20:11 Rocephin Allergy Hives Uncoded 08/24/17 20:01 Date of admission: 08/29/17 19:45 Primary care physician: Barndan Flanagan Discharging clinician: Eitan Logan Anticipated date of discharge: 08/30/17 - Constitutional Vitals: Temp Pulse Resp BP Pulse Ox 98.1 F 87 14 112/74 94 08/30/17 11:21 08/30/17 11:21 08/30/17 11:21 08/30/17 11:21 08/30/17 11:21 General appearance: Present: cooperative, A&O X 3, answers questions appropriately - Head Head exam: Present: atraumatic, normocephalic - Eye Eye exam: Present: PERRL, conjuntiva pink, sclera anicteric Pupils: Present: PERRL - Neck Neck exam general surgery: Present: supple, trachea midline. Absent: lymphadenopathy - Respiratory Respiratory exam: Present: CTAB, wheezes (Fine expiratory wheezes). Absent: accessory muscle use, rales, rhonchi - Cardiovascular Cardiovascular exam: Present: RRR, +S1, +S2. Absent: diastolic murmur, gallop, rubs, systolic murmur - GI/Abdominal GI/Abdominal exam: Present: normal bowel sounds, soft, no peritoneal signs. Absent: distended, tenderness - Extremities Exam Extremities exam: Present: warm, radial pulses palpable and symmetrical. Absent : calf tenderness, cyanotic, pedal edema - Neurological Exam Neurological exam: Present: CN II-XII intact, oriented X3, no focal deficits. Absent: pronater drift, facial droop, speech deficit - Skin Skin exam: Present: dry, intact - Patient Status Disposition: Home Health Service Condition: Fair Overall status at discharge: patient is progressing back to baseline - Discharge Instructions Instructions: Chronic Obstructive Pulmonary Disease (DC) Follow Up With: Les Martines DO [Primary Care Provider] - 09/26/17 11:15 am - Diet and Activity Activity: increase activity as tolerated, wear oxygen at all times Diet: advance to your usual diet
--- NOTE | 2017-08-30 12:39 | Physician Discharge Referral ---
Home Health/Hosp Referral Info Transfer to: Home Health Provider in Charge Post Discharge: PCP - Diagnosis (1) Acute exacerbation of chronic obstructive airways disease Priority: Primary Status: Acute (2) Epilepsy Priority: Secondary Status: Chronic (3) Tobacco abuse Priority: Secondary Status: Chronic (4) Hyponatremia Priority: Secondary Status: Acute - Respiratory Orders Oxygen / L per min (2L per minute per nasal cannula) Smoking Cessation: Smoking cessation has been advised. For more information, call the [place] Tobacco Quit Line at 0-097-GVRF-NOW. - Diet/Nutrition Diet/Nutrition Orders: Regular - Activity Activity Orders: Up ad tracy, Ambulate - Services Needed Following services are medically necessary services: Nursing - Transfer Medications Home Medications: Albuterol Sulfate [Proair Hfa] 2 puff IH Q4H PRN 11/17/15 [History] Alendronate Sodium [Fosamax] 70 mg PO QWEEK 11/17/15 [History] Ranitidine HCl [Heartburn Relief] 150 mg PO BID 11/17/15 [History] diazePAM [Valium] 10 mg PO TID 11/17/15 [History] Fluticasone/Vilanterol [Breo Ellipta 100-25 Mcg INH] 1 puff IH DAILY 07/24/17 [ History] OXcarbazepine [Oxcarbazepine] 300 mg PO QAM 08/24/17 [History] OXcarbazepine [Oxcarbazepine] 600 mg PO HS 08/24/17 [History] Oxycodone HCl/Acetaminophen [Percocet 5-325 mg Tablet] 1 tab PO Q6H PRN [History] Phenytoin ER [Dilantin ER] 100 mg PO QAM 08/24/17 [History] Phenytoin ER [Dilantin ER] 200 mg PO QPM 08/24/17 [History] Allergies/Adverse Reactions: 3 Allergy/AdvReac Type Severity Reaction Status Date / Time levofloxacin [From Levaquin] Allergy Hives Verified 07/24/17 20:11 Rocephin Allergy Hives Uncoded 08/24/17 20:01 Certification: Further, I certify that my clinical findings support that this patient is homebound (i.e. absences from home require considerable and taxing effort and are for medical reasons or voodoo services or infrequently or short duration when for other reasons) because: Homebound Reason: Patient requires assistance of a person or device to safely leave home Attestation: My signature below is to certify that this patient is under my care and that I, or nurse practitioner, or a physician's hospital aides and assistants teacher working with me, has a face-to -face encounter with this patient.
== END 2017-08-30 14:02 | disposition home health service (06) | DRG 140 ==
LOC: EMEROO 10:43 → 3BNU 10:43
PROVIDERS: ADMIT Nurse Practitioner Acute Care; ATTEND Internal Medicine

== ENCOUNTER 2019-03-03 13:47 | Inpatient (IN) ==
[2019-03-03] MEDS ORDERED: Ipratropium/Albuterol Neb 3 ML IH ONE (14:07)
[2019-03-03] MEDS ORDERED: methylPREDNISolone 125 MG/2 ML VIAL IVP ONE (14:07)
[2019-03-03 15:52] LABS: Basophils % 0.6 %; Eosinophils # 0.1 K/mcL (0.0-0.6); Eosinophils % 1.2 %; Hematocrit 40.8 % (35.3-44.9); Immature Granulocytes % 0.3 % (0-4); Lymphocytes # 2.5 K/mcL (0.6-4.6); Mean Corpuscular HGB Conc 34.3 g/dL (31.6-35.5); Mean Corpuscular Hemoglobin 32.3 pg (28.0-33.3); Mean Platelet Volume 8.7 fL (9.4-12.4); Monocytes # 0.7 K/mcL (0.0-1.3); Monocytes % 9.7 %; Neutrophils # 3.4 K/mcL (1.6-8.9); Platelet Count 254 K/mcL (140-400); Red Blood Count 4.34 M/mcL (3.82-4.97); Red Cell Distribution Width 13.2 % (11.5-14.5); Segmented Neutrophils % 51.2 %; White Blood Count 6.7 K/mcL (4.3-11.1)
[2019-03-03 16:15] LABS: Alanine Aminotransferase 13 Units/L (7-52); Albumin/Globulin Ratio 1.9 (1.1-2.2); Alkaline Phosphatase 52 Units/L (34-104); Aspartate Amino Transferase 16 Units/L (13-39); BUN/Creatinine Ratio 27 (6-26); Bilirubin,Total 0.2 mg/dL (0.3-1.0); Blood Urea Nitrogen 12 mg/dL (6-20); Calcium 8.6 mg/dL (8.6-10.3); Carbon Dioxide 21 mEq/L (23-29); Chloride 105 mEq/L (98-107); Globulin 2.1 g/dL (2.4-3.5); Glucose 99 mg/dL (70-105); Osmolality,Calculated 282 (280-300); Potassium 3.9 mEq/L (3.5-5.1); Sodium 136 mEq/L (136-145); Total Protein 6.1 g/dL (6.4-8.9); Troponin I < 0.03 ng/mL (< 0.04); eGFR For African Americans > 60 (> 60); eGFR For Non-African Americans > 60 (> 60)
[2019-03-03] MEDS ORDERED: *HR* OxyCODONE/APAP 5/325 TABLET PO ONE (16:28)
[2019-03-03] MEDS ORDERED: diazePAM 10 MG TABLET PO ONE (16:28)
[2019-03-03] MEDS ORDERED: Azithromycin 500 MG in 0.9 % Sodium Chloride 250 ML IVPB ONE (16:42)
[2019-03-03] MEDS ORDERED: Naloxone 0.4 MG/ML INJ IVP PRN (17:30)
[2019-03-03] MEDS ORDERED: Ipratropium/Albuterol Neb 3 ML IH PRN (17:31)
[2019-03-03] MEDS: *HR* OxyCODONE/APAP 5/325 TABLET PO SCH (20:48)
[2019-03-03] MEDS: OXcarbazepine 150 MG TABLET PO SCH (20:49)
[2019-03-03] MEDS: diazePAM 10 MG TABLET PO SCH (20:50)
[2019-03-03] MEDS: Ipratropium/Albuterol Neb 3 ML IH SCH (21:38)
[2019-03-03] MEDS: MethylPREDNISolone 40 MG/ML VIAL IVP SCH (23:37)
[2019-03-03] MEDS: Ibuprofen 600 MG TABLET PO PRN (23:38)
[2019-03-03] MEDS: *HR* Heparin 5,000 UNIT/ML VIAL SQ SCH (23:38)
[2019-03-04] MEDS ORDERED: 0.9 % Sodium Chloride 500 ML IVC ONE (02:03)
[2019-03-04] MEDS: Ipratropium/Albuterol Neb 3 ML IH SCH ×4 (03:37→22:19)
[2019-03-04] MEDS ORDERED: *HR* LORazepam 2 MG/ML VIAL IVP ONE (03:37)
[2019-03-04] MEDS: *HR* OxyCODONE/APAP 5/325 TABLET PO SCH ×4 (04:21→20:03)
[2019-03-04] MEDS: diazePAM 10 MG TABLET PO SCH ×3 (05:41→20:05)
[2019-03-04] MEDS: *HR* Heparin 5,000 UNIT/ML VIAL SQ SCH ×3 (06:46→23:43)
[2019-03-04 08:19] LABS: Adenovirus Not Detected (Not Detect); Bordetella Pertussis Not Detected (Not Detect); Chlamydophila pneumoniae Not Detected (Not Detect); Coronavirus 229E Not Detected (Not Detect); Coronavirus HKU1 Not Detected (Not Detect); Coronavirus NL63 Not Detected (Not Detect); Coronavirus OC43 Not Detected (Not Detect); Human Metapneumovirus Not Detected (Not Detect); Human Rhinovirus/Enterovirus Not Detected (Not Detect); Influenza A Subtype 2009 H1 Not Detected (Not Detect); Influenza A Untypeable Not Detected (Not Detect); Influenza B Not Detected (Not Detect); Mycoplasma pneumoniae Not Detected (Not Detect); Parainfluenza Virus 1 Not Detected (Not Detect); Parainfluenza Virus 2 Not Detected (Not Detect); Parainfluenza Virus 3 Not Detected (Not Detect); Parainfluenza Virus 4 Not Detected (Not Detect); Respiratory Syncytial Virus Not Detected (Not Detect)
[2019-03-04] MEDS: MethylPREDNISolone 40 MG/ML VIAL IVP SCH ×3 (08:35→23:43)
[2019-03-04] MEDS: OXcarbazepine 150 MG TABLET PO SCH ×2 (08:36→20:04)
[2019-03-04] MEDS: Ibuprofen 600 MG TABLET PO PRN (08:48)
[2019-03-04] MEDS ORDERED: Nicotine 7 MG PATCH.TD24 TD SCH (09:00)
[2019-03-04] MEDS: Menthol 9.1 MG LOZENGE PO PRN ×5 (09:20→20:05)
[2019-03-04] MEDS ORDERED: *HR* OxyCODONE/APAP 5/325 TABLET PO ONE (11:37)
[2019-03-04] MEDS: GuaiFENesin Liq 200 MG/10 ML UDC PO PRN ×2 (13:02→20:47)
[2019-03-04] MEDS: Azithromycin 500 MG in D5% in Water 250 ML IVPB SCH (16:48)
[2019-03-05] MEDS: Ibuprofen 600 MG TABLET PO PRN (00:49)
[2019-03-05] MEDS: Menthol 9.1 MG LOZENGE PO PRN ×2 (03:40→06:16)
[2019-03-05] MEDS: GuaiFENesin Liq 200 MG/10 ML UDC PO PRN ×2 (04:20→22:50)
[2019-03-05] MEDS: Ipratropium/Albuterol Neb 3 ML IH SCH ×4 (04:25→23:08)
[2019-03-05] MEDS: *HR* Heparin 5,000 UNIT/ML VIAL SQ SCH ×3 (06:11→20:50)
[2019-03-05] MEDS: diazePAM 10 MG TABLET PO SCH ×3 (09:18→20:50)
[2019-03-05] MEDS: *HR* OxyCODONE/APAP 5/325 TABLET PO SCH ×4 (09:18→20:49)
[2019-03-05] MEDS: OXcarbazepine 150 MG TABLET PO SCH ×2 (09:18→20:50)
[2019-03-05] MEDS: MethylPREDNISolone 40 MG/ML VIAL IVP SCH ×2 (09:19→15:15)
[2019-03-05] MEDS: Azithromycin 500 MG in D5% in Water 250 ML IVPB SCH (17:14)
[2019-03-06] MEDS: MethylPREDNISolone 40 MG/ML VIAL IVP SCH ×4 (00:28→23:52)
[2019-03-06] MEDS: Ipratropium/Albuterol Neb 3 ML IH SCH ×4 (04:05→22:35)
[2019-03-06] MEDS: Menthol 9.1 MG LOZENGE PO PRN (05:31)
[2019-03-06] MEDS: *HR* Heparin 5,000 UNIT/ML VIAL SQ SCH ×3 (06:10→21:15)
[2019-03-06] MEDS: *HR* OxyCODONE/APAP 5/325 TABLET PO SCH ×4 (08:21→21:15)
[2019-03-06] MEDS: diazePAM 10 MG TABLET PO SCH ×3 (08:21→21:16)
[2019-03-06] MEDS: OXcarbazepine 150 MG TABLET PO SCH ×2 (08:22→21:16)
[2019-03-06] MEDS: Budesonide/Formoterol 160/4.5 1 PUFF INH IH SCH ×3 (10:41→22:35)
[2019-03-06] MEDS: Azithromycin 500 MG in D5% in Water 250 ML IVPB SCH (16:59)
[2019-03-06] MEDS: GuaiFENesin Liq 200 MG/10 ML UDC PO PRN (22:55)
[2019-03-07] MEDS: Ipratropium/Albuterol Neb 3 ML IH SCH ×2 (03:41→10:44)
[2019-03-07] MEDS: *HR* OxyCODONE/APAP 5/325 TABLET PO SCH ×2 (03:43→13:21)
[2019-03-07] MEDS: *HR* Heparin 5,000 UNIT/ML VIAL SQ SCH ×2 (06:05→13:18)
[2019-03-07] MEDS: diazePAM 10 MG TABLET PO SCH (07:58)
[2019-03-07] MEDS: OXcarbazepine 150 MG TABLET PO SCH (07:59)
[2019-03-07] MEDS: MethylPREDNISolone 40 MG/ML VIAL IVP SCH (07:59)
[2019-03-07] MEDS: Budesonide/Formoterol 160/4.5 1 PUFF INH IH SCH (10:44)
[2019-03-07 11:40] VITALS: BP 114/72
[2019-03-08] MEDS ORDERED: NON-FORMULARY MEDICATION 1 EACH EACH (Alendronate Sodium [Fosamax] 70 MG) PO SCH (17:31)
== END 2019-03-07 13:45 | disposition home health service (06) | DRG 140 ==
LOC: EMEROOARM 13:47 → 3BNU 13:47 → SUATTDRO 17:12 → 3BNU 17:56
PROVIDERS: ADMIT Internal Medicine; ATTEND Internal Medicine

== ENCOUNTER 2019-07-25 14:14 | Inpatient (IN) ==
[2019-07-25] MEDS ORDERED: 0.9 % Sodium Chloride 1,000 ML IVC ONE (15:03)
[2019-07-25] MEDS ORDERED: Isovue-370 500 ML BOTTLE IVP ONE (15:05)
[2019-07-25 15:44] LABS: Bilirubin,Urine Negative (Negative); Blood,Urine Negative (Negative); Clarity,Urine Clear (Clear); Color,Urine Yellow (Yellow); Glucose,Urine (UA) Normal (Normal); Ketones,Urine Negative (Negative); Leukocyte Esterase,Urine Negative (Negative); Nitrite,Urine Negative (Negative); Protein,Urine Negative (Neg-Trace); Specific Gravity,Urine 1.022 (1.010-1.025); Urobilinogen,Urine Normal (Normal)
[2019-07-25 16:53] LABS: Basophils % 0.1 %; Hematocrit 40.5 % (35.3-44.9); Hemoglobin 13.9 g/dL (11.5-15.4); Immature Granulocytes % 0.3 % (0-4); Lymphocytes # 1.4 K/mcL (0.6-4.6); Mean Corpuscular HGB Conc 34.3 g/dL (31.6-35.5); Mean Corpuscular Hemoglobin 32.3 pg (28.0-33.3); Monocytes % 2.8 %; Neutrophils # 10.6 K/mcL (1.6-8.9); Platelet Count 282 K/mcL (140-400); Red Blood Count 4.31 M/mcL (3.82-4.97); Segmented Neutrophils % 85.8 %
[2019-07-25 16:54] LABS: Monocytes # 0.3 K/mcL (0.0-1.3); White Blood Count 12.3 K/mcL (4.3-11.1)
[2019-07-25 16:59] LABS: Activated Partial Thrombo Time 30.3 Seconds (26.0-36.0)
[2019-07-25 17:14] LABS: Alanine Aminotransferase 12 Units/L (7-52); Albumin 4.6 g/dL (3.5-5.7); Albumin/Globulin Ratio 2.1 (1.1-2.2); Alkaline Phosphatase 44 Units/L (34-104); Aspartate Amino Transferase 11 Units/L (13-39); BUN/Creatinine Ratio 17 (6-26); Bilirubin,Indirect 0.2 mg/dL (0.0-1.0); Bilirubin,Total 0.2 mg/dL (0.3-1.0); Blood Urea Nitrogen 7 mg/dL (6-20); Calcium 8.9 mg/dL (8.6-10.3); Carbon Dioxide 23 mEq/L (23-29); Chloride 103 mEq/L (98-107); Globulin 2.2 g/dL (2.4-3.5); Glucose 128 mg/dL (70-105); Osmolality,Calculated 278 (280-300); Potassium 4.2 mEq/L (3.5-5.1); Sodium 134 mEq/L (136-145); Total Protein 6.8 g/dL (6.4-8.9); Troponin I < 0.03 ng/mL (< 0.04); eGFR For African Americans > 60 (> 60); eGFR For Non-African Americans > 60 (> 60)
[2019-07-25] MEDS ORDERED: diazePAM 5 MG TABLET PO ONE (18:26)
[2019-07-25] MEDS ORDERED: *HR* OxyCODONE/APAP 5/325 TABLET PO ONE (18:26)
[2019-07-25] MEDS ORDERED: Doxycycline 100 MG in 0.9 % Sodium Chloride Mini Bag 100 ML IVPB ONE (19:02)
[2019-07-25] MEDS ORDERED: Naloxone 0.4 MG/ML INJ IVP PRN (20:56)
[2019-07-25] MEDS ORDERED: *HR* Promethazine 25 MG/ML VIAL IVP PRN (20:56)
[2019-07-25] MEDS ORDERED: Acetaminophen 325 MG TABLET PO PRN (20:56)
[2019-07-25] MEDS ORDERED: Famotidine 20 MG TABLET PO SCH (21:00)
[2019-07-25] MEDS ORDERED: OXcarbazepine 150 MG TABLET PO SCH (21:00)
[2019-07-25] MEDS: Budesonide/Formoterol 160/4.5 1 PUFF INH IH SCH (23:09)
[2019-07-26] MEDS: *HR* OxyCODONE/APAP 5/325 TABLET PO PRN ×4 (00:12→22:25)
[2019-07-26] MEDS: diazePAM 10 MG TABLET PO PRN ×3 (00:13→17:27)
[2019-07-26] MEDS: OXcarbazepine 150 MG TABLET PO SCH ×3 (00:15→22:25)
[2019-07-26 05:28] LABS: Basophils % 0.4 %; Eosinophils % 0.2 %; Hematocrit 35.6 % (35.3-44.9); Immature Granulocytes % 0.2 % (0-4); Lymphocytes # 3.4 K/mcL (0.6-4.6); Lymphocytes % 34.2 %; Mean Corpuscular HGB Conc 32.9 g/dL (31.6-35.5); Mean Corpuscular Hemoglobin 31.6 pg (28.0-33.3); Mean Corpuscular Volume 96.2 fL (83.0-100.0); Mean Platelet Volume 9.2 fL (9.4-12.4); Monocytes # 0.8 K/mcL (0.0-1.3); Monocytes % 7.8 %; Neutrophils # 5.8 K/mcL (1.6-8.9); Platelet Count 253 K/mcL (140-400); Red Cell Distribution Width 13.4 % (11.5-14.5); Segmented Neutrophils % 57.2 %; White Blood Count 10.1 K/mcL (4.3-11.1)
[2019-07-26 05:29] LABS: Hemoglobin 11.7 g/dL (11.5-15.4)
[2019-07-26] MEDS: *HR* Enoxaparin 40 MG/0.4 ML SYRINGE SQ SCH ×2 (05:33→07:32)
[2019-07-26 05:50] LABS: BUN/Creatinine Ratio 24 (6-26); Blood Urea Nitrogen 10 mg/dL (6-20); Calcium 7.9 mg/dL (8.6-10.3); Carbon Dioxide 23 mEq/L (23-29); Chloride 105 mEq/L (98-107); Chol/HDL Ratio 3.5 (0-4.9); Cholesterol 193 mg/dL (< 200); Glucose 80 mg/dL (70-105); HDL Cholesterol 55 mg/dL (40-59); LDL Cholesterol,Calculated 115 mg/dL (0-99); Magnesium 1.9 mg/dL (1.6-2.6); Osmolality,Calculated 278 (280-300); Phosphorous 3.2 mg/dL (2.7-4.5); Sodium 135 mEq/L (136-145); Triglycerides 117 mg/dL (< 150); eGFR For African Americans > 60 (> 60); eGFR For Non-African Americans > 60 (> 60)
[2019-07-26] MEDS: GuaiFENesin Liq 200 MG/10 ML UDC PO PRN ×2 (09:24→16:35)
[2019-07-26 10:25] LABS: Adenovirus Not Detected (Not Detect); Bordetella Pertussis Not Detected (Not Detect); Chlamydophila pneumoniae Not Detected (Not Detect); Coronavirus 229E Not Detected (Not Detect); Coronavirus HKU1 Not Detected (Not Detect); Coronavirus NL63 Not Detected (Not Detect); Coronavirus OC43 Not Detected (Not Detect); Human Metapneumovirus Not Detected (Not Detect); Human Rhinovirus/Enterovirus Not Detected (Not Detect); Influenza A Subtype 2009 H1 Not Detected (Not Detect); Influenza B Not Detected (Not Detect); Mycoplasma pneumoniae Not Detected (Not Detect); Parainfluenza Virus 1 Not Detected (Not Detect); Parainfluenza Virus 2 Not Detected (Not Detect); Parainfluenza Virus 3 Not Detected (Not Detect); Parainfluenza Virus 4 Not Detected (Not Detect); Respiratory Syncytial Virus Not Detected (Not Detect)
[2019-07-26] MEDS: Budesonide/Formoterol 160/4.5 1 PUFF INH IH SCH ×2 (11:11→20:33)
[2019-07-26] MEDS: Famotidine 20 MG/2 ML VIAL IVP SCH (17:27)
[2019-07-26] MEDS: Doxycycline 100 MG in 0.9 % Sodium Chloride Mini Bag 100 ML IVPB SCH (18:43)
[2019-07-26] MEDS: Ipratropium/Albuterol Neb 3 ML IH PRN (20:39)
[2019-07-26] MEDS ORDERED: NON-FORMULARY MEDICATION 1 EACH EACH (Alendronate Sodium [Fosamax] 70 MG) PO SCH (20:59)
[2019-07-27] MEDS: diazePAM 10 MG TABLET PO PRN ×2 (01:44→09:51)
[2019-07-27] MEDS: GuaiFENesin Liq 200 MG/10 ML UDC PO PRN ×2 (02:58→12:32)
[2019-07-27 05:21] LABS: Basophils % 0.5 %; Eosinophils # 0.1 K/mcL (0.0-0.6); Eosinophils % 1.6 %; Hematocrit 36.3 % (35.3-44.9); Hemoglobin 12.1 g/dL (11.5-15.4); Immature Granulocytes % 0.2 % (0-4); Lymphocytes # 4.2 K/mcL (0.6-4.6); Mean Corpuscular HGB Conc 33.3 g/dL (31.6-35.5); Mean Corpuscular Hemoglobin 31.8 pg (28.0-33.3); Mean Corpuscular Volume 95.5 fL (83.0-100.0); Monocytes # 0.9 K/mcL (0.0-1.3); Monocytes % 10.2 %; Neutrophils # 3.6 K/mcL (1.6-8.9); Platelet Count 240 K/mcL (140-400); Red Cell Distribution Width 13.2 % (11.5-14.5); Segmented Neutrophils % 40.5 %; White Blood Count 8.9 K/mcL (4.3-11.1)
[2019-07-27 05:39] LABS: BUN/Creatinine Ratio 25 (6-26); Blood Urea Nitrogen 10 mg/dL (6-20); Calcium 8.2 mg/dL (8.6-10.3); Carbon Dioxide 23 mEq/L (23-29); Chloride 101 mEq/L (98-107); Glucose 92 mg/dL (70-105); Magnesium 1.7 mg/dL (1.6-2.6); Osmolality,Calculated 275 (280-300); Potassium 3.7 mEq/L (3.5-5.1); Sodium 133 mEq/L (136-145); eGFR For African Americans > 60 (> 60); eGFR For Non-African Americans > 60 (> 60)
[2019-07-27] MEDS: *HR* Enoxaparin 40 MG/0.4 ML SYRINGE SQ SCH (06:10)
[2019-07-27] MEDS: Doxycycline 100 MG in 0.9 % Sodium Chloride Mini Bag 100 ML IVPB SCH (06:10)
[2019-07-27] MEDS: Famotidine 20 MG/2 ML VIAL IVP SCH (06:10)
[2019-07-27] MEDS: *HR* OxyCODONE/APAP 5/325 TABLET PO PRN ×2 (06:13→12:31)
[2019-07-27] MEDS: Budesonide/Formoterol 160/4.5 1 PUFF INH IH SCH (08:01)
[2019-07-27] MEDS: OXcarbazepine 150 MG TABLET PO SCH (09:15)
[2019-07-27 10:43] VITALS: BP 148/84
[2019-07-27] MEDS: Ipratropium/Albuterol Neb 3 ML IH PRN (10:53)
== END 2019-07-27 14:15 | disposition left against medical advice (07) | DRG 139 ==
LOC: EMEROOARM 14:14 → 2NENU 14:14 → SUATTDRO 20:07 → 2NENU 22:35 → 3ANU 07-26 19:20
PROVIDERS: ADMIT Internal Medicine; ATTEND Pharmacist